=== PATIENT | male | born 1955 | race Caucasian/White ===

== ENCOUNTER 2017-09-25 10:23 | Inpatient (IN) | payer MEDICAID ==
[2017-09-25 10:56] LABS: PLATELET COUNT 260 10^3/uL (150-400)
[2017-09-25] MEDS ORDERED: ACETAMINOPHEN 325 MG TAB PO ONE (11:03)
[2017-09-25 11:06] LABS: INR 1.73 (0.83-1.16); PROTIME(PATIENT) 20.4 SEC (12.0-15.0)
--- NOTE | 2017-09-25 11:06 | EDPHY ---
H & P Time Seen by Provider: 09/25/17 10:53 HPI/ROS: CHIEF COMPLAINT: Found down Limitations: Poor historian HISTORY OF PRESENT ILLNESS: 62-year-old male with left yamini paresis after a CVA presents with altered mental status. He lives in his own home was found down next to his wheelchair this morning by a caregiver. He has had a runny nose and a cough, but is unable to provide any further history. On Coumadin. REVIEW OF SYSTEMS: Unable to determine Past Medical/Surgical History: CVA, left hemiparesis, wheelchair-bound Social History: Lives in own home Smoking Status: Never smoked Physical Exam: General Appearance: Alert, pleasant Eyes: Pupils equal and round, no conjunctival pallor or injection ENT, Mouth: erythema bilateral nares, mucous membranes moist Neck: Normal inspection, no tenderness, ROM without pain Respiratory: Lungs are clear to auscultation, no c/w tenderness Cardiovascular: Regular rate and rhythm Gastrointestinal: Abdomen is soft and nontender Neurological: Alert, oriented to self, left hemiparesis Skin: Warm and dry Extremities: Compression stockings in place, no tenderness Psychiatric: Flat affect Constitutional: Initial Vital Signs Temperature (C) 37.3 C 09/25/17 10:44 Heart Rate 88 09/25/17 10:44 Respiratory Rate 16 09/25/17 10:44 Blood Pressure 186/98 H 09/25/17 10:44 O2 Sat (%) 94 09/25/17 10:44 O2 Delivery Mode Room Air Allergies/Adverse Reactions: No Known Allergies Allergy (Verified 09/25/17 10:40) Home Medications: Medication Instructions Recorded Baclofen [Baclofen 10 mg (*)] 30 mg PO HS 09/25/17 Gabapentin [Neurontin 300 MG (*)] 300 mg PO HS 09/25/17 Lisinopril [Zestril 20 mg (*)] 20 mg PO DAILY 09/25/17 Warfarin Sodium [Coumadin 3MG (*)] 6 mg PO DAILY 09/25/17 Medical Decision Making - Diagnostics EKG Interpretation: EKG interpreted by me reveals ST, rate 107, abnormal R wave progression, c/w ant LA vs abn lead placement. Imaging Results: Head CT 09/25/17 10:53 Impression: 1. Two small intraparenchymal bleeds in the posterior right frontal lobe (in bed of remote right middle cerebral artery territory ischemic infarction). 2. Petechial hemorrhagic contusion in left frontal lobe. 3. No subdural hematoma, shift, or fracture. Findings discussed with Ben at the ER desk on 09/25/2017 at 1135 hours. He will convey the positive results to Dr. Dorota Franklin. Chest X-Ray 09/25/17 11:02 Impression: No acute findings in the chest. ED Course/Re-evaluation: This pt presents with AMS. He is wheelchair bound after a CVA and apparently lives on his own, with caregivers who come to his home. He clearly is altered, though family/friends are not present to assist with the clinical history and not available by phone initially. w/u of AMS initiated, including CT head, given found down next to wheelchair. No evidence of trauma on physical exam. ED RN attempting to find family/friends. Serial exams x3 unchanged. Continues to have altered mental status. Eval for infection unremarkable, including CXR/UA. Influenza swab pending. CT reveals punctate ICH in bilateral frontal areas. Dr. Rai consulted for ICH, will see pt. Pt seen by Dr. Escobar, no reversal of anticoagulation. Repeat CT head in 4 hours. Consulted the hospitalist service, Dr. Mullins to admit. Consulted Dr. Galindo, will see pt for trauma. AMS most likely secondary to ICH, no evidence of alternative etiology. Critical care time by me exclusive of unbundled procedures: 35 minutes. Organ at risk: brain. Time spend in serial assessments of patient, review of tests/ radiologic studies, consultations. Differential Diagnosis: Altered mental status including but not limited to hypoglycemia, infectious process, electrolyte abnormality, head injury and intoxicants. - Data Points Laboratory Results: Laboratory Results 09/25/17 10:23 09/25/17 10:23 Medications Given: Hydralazine HCl (Apresoline) 10 mg IVP Q2HRS PRN PRN Reason: SBP Greater Than Stop: 03/24/18 22:39 Last Admin: 09/26/17 01:49 Dose: 10 mg Sodium Chloride (Ns) 1,000 mls @ 100 mls/hr IV CONT JESSICA Stop: 03/24/18 18:44 Last Admin: 09/27/17 14:31 Dose: 1,000 mls Labetalol HCl (Trandate Injection) 10 mg IVP Q4H PRN PRN Reason: SBP Greater Than Stop: 03/24/18 22:44 Last Admin: 09/26/17 17:32 Dose: 10 mg Ondansetron HCl (Zofran) 4 mg IVP Q4HRS PRN PRN Reason: Nausea/Vomiting, Can't Take PO Stop: 03/24/18 12:45 Last Admin: 09/27/17 09:10 Dose: 4 mg Warfarin Sodium (Coumadin) 6 mg PO DAILY@1600 [facility] Stop: 03/25/18 15:29 Last Admin: 09/27/17 17:14 Dose: 6 mg Discontinued Medications Acetaminophen (Tylenol) 650 mg PO EDNOW ONE Stop: 09/25/17 11:04 Last Admin: 09/25/17 11:47 Dose: 650 mg Sodium Chloride (Ns) 500 mls @ 1,000 mls/hr IV EDNOW ONE PRN Reason: Protocol Stop: 09/25/17 11:54 Last Admin: 09/25/17 11:50 Dose: 500 mls Sodium Chloride (Ns) 1,000 mls @ 3,000 mls/hr IV ONCE ONE Stop: 09/25/17 13:05 Last Admin: 09/25/17 13:08 Dose: 1,000 mls Vancomycin HCl 1.25 gm/ Sodium (Chloride) 250 mls @ 166.667 mls/hr IV Q12H [facility] Stop: 10/26/17 11:29 Last Admin: 09/27/17 00:50 Dose: 250 mls Potassium Chloride 10 meq/ (Sodium Chloride) 100 mls @ 100 mls/hr IV Q1H [facility] Stop: 09/26/17 16:29 Last Admin: 09/26/17 17:15 Dose: Not Given Potassium Chloride 10 meq/ (Sodium Chloride) 100 mls @ 50 mls/hr IV Q2H [facility] Stop: 09/27/17 02:59 Last Admin: 09/27/17 01:50 Dose: 100 mls Potassium Chloride (Klor-Con) 20 meq PO ONCE ONE Stop: 09/26/17 17:01 Last Admin: 09/26/17 17:32 Dose: 20 meq Potassium Chloride (Klor-Con) 10 meq PO ONCE ONE Stop: 09/27/17 09:31 Last Admin: 09/27/17 14:15 Dose: Not Given Departure - Departure Disposition: [facility] Clinical Impression: ICH (intracerebral hemorrhage) Qualifiers: Intracerebral hemorrhage etiology: traumatic Encounter type: initial encounter Laterality: unspecified laterality Loss of consciousness presence/duration: without LOC Qualified Code(s): S06.360A - Traumatic hemorrhage of cerebrum, unspecified, without loss of consciousness, initial encounter Condition: Serious
[2017-09-25] MEDS ORDERED: NS 500 ML IV ONE (11:25)
[2017-09-25] MEDS ORDERED: ACETAMINOPHEN 650 MG/20.3 ML UDCUP ONE (11:42)
--- NOTE | 2017-09-25 12:45 | CPEKG ---
Heart Rate: 107 RR Interval: 561 P-R Interval: 164 QRSD Interval: 98 QT Interval: 348 QTC Interval: 465 P Argyle: 76 QRS Argyle: 65 T Wave Argyle: 36 EKG Severity - BORDERLINE ECG - EKG Impression: SINUS TACHYCARDIA EKG Impression: CONSIDER ANTERIOR INFARCT Electronically Signed By: Dorota Franklin 25-Sep-2017 14:58:02
[2017-09-25] MEDS ORDERED: ONDANSETRON DISINTEGRATING 4 MG TAB PO PRN (12:46)
[2017-09-25] MEDS ORDERED: ACETAMINOPHEN 325 MG TAB PO PRN (12:46)
[2017-09-25] MEDS ORDERED: NS 1,000 ML IV ONE (12:46)
--- NOTE | 2017-09-25 14:59 | GHP ---
[f rep st] HISTORY AND PHYSICAL DATE OF ADMISSION: 09/25/2017 CHIEF COMPLAINT: The patient was found down. HISTORY OF PRESENT ILLNESS: This is a 62-year-old male with a history of a CVA and left hemiparesis, wheelchair bound, is a resident of a local nursing facility, where he was found down this morning, b rought to the emergency department for evaluation. Upon my evaluation in the ICU, patient is denying any chest pain, denying palpitations, denying shortness of breath. Cannot recall the events which l ed to him being found down. Does report a dull headache that involves his entire head. Denies any v ision changes. Denies any new numbness or tingling, changes in his hemiparesis. Denies any subjecti ve fevers or chills. Reports a recent cough that has been nonproductive of sputum. Denies nausea. Denies vomiting. Denies diarrhea or dysuria. PAST MEDICAL HISTORY: 1. Patient has a history of CVA with persistent left hemiparesis, wheelchair bound. The patient has right carotid artery occlusion, on full-dose anticoagulation. 2. History of a traumatic brain injury. SOCIAL HISTORY: Negative for tobacco. Occasional alcohol. No illicit drugs or marijuana. FAMILY HISTORY: Positive for strokes. REVIEW OF SYSTEMS: A 10-point review of systems is negative, with the exception of that reported in the HPI. PHYSICAL EXAMINATION: VITAL SIGNS: Blood pressure is 161/90, heart rate 114, respiratory rate 18, s aturating 94% on room air, 37.2. GENERAL: This is a thin-appearing middle-aged male lying flat in b ed. HEENT: Exam is notable for dry mucous membranes. Eye exam is negative for any icterus. CARDIA C: Patient is tachycardic but regular. PULMONARY: Clear to auscultation bilaterally. GASTROINTEST INAL: Positive bowel sounds. ABDOMEN: Soft and nontender. MUSCULOSKELETAL: Negative for any lowe r extremity edema. SKIN: Exam is negative for any rashes. NEUROLOGIC: The patient is alert and or iented x1. Has 4/5 strength bilaterally of the upper and lower extremities. PSYCHIATRIC: He is ple asant and cooperative on interview and examination. DATA: CT of the head, which I personally reviewed and interpreted, shows 2 small intraparenchymal bl eeds in the posterior right frontal lobe. Radiology describes a petechial hemorrhagic contusion in t he left frontal lobe. No subdural hematoma or shift are noted. LABORATORY DATA: White count is 15.4, hematocrit 48.9, platelets of 260, INR 1.73, creatinine 0.8, c arbon dioxide 21, anion gap 20, blood glucose 114. Urinalysis negative. ASSESSMENT AND PLAN: This is a 62-year-old male with a history of a CVA, on full-dose anticoagulatio n, presenting found down. 1. Acute small intraparenchymal hemorrhages. Patient was evaluated by Neurosurgery, who did not rec ommend reversing his anticoagulation at this time. He will be admitted to the stepdown unit for clos e neurologic monitoring and serial CT scans of the head. 2. Acute leukocytosis. The patient does not have significant symptoms concerning for occult infecti on. Blood cultures were obtained from the emergency department. Urinalysis is negative, and respira tory pathogen panel is negative. Will continue to monitor clinically. Would not start empiric antib iotics at this time. 3. History of cerebrovascular accident. Will hold the patient's warfarin overnight. Will not rever se per Neurosurgery and follow clinically. PT/OT have been ordered. Continue to monitor closely. 4. Prophylaxis. Will hold Lovenox, place SCDs. Diet as he tolerates. DISPOSITION: I expect greater than 2 midnights. Patient presenting with intraparenchymal bleed, req uiring close neurologic monitoring and step-down unit admission. I have discussed the case with the emergency room physician. Patient will be triaged to the stepdown unit for neurologic care. /[id number]/MODL
--- NOTE | 2017-09-25 15:55 | PDMN ---
Medical Necessity Medical necessity: est los>2mn for acute intraparenchymal hemorrhages r/t fall and acute leukocytosis of unknown etiology; admit to ICU/SDU for close monitoring, and serial CT's of head, follow blood cx's and monitor clinically for infection; comorbid L hemiparesisi, and w/c bound @ LTC facility, r/t CVA, TBI, and R carotid artery occlusion, on full dose AC; per order and H&P 09/25/17
--- NOTE | 2017-09-25 20:26 | GCON ---
[f rep st] CONSULTATION ER CONSULTATION. DATE OF CONSULTATION: 09/25/2017 REASON FOR CONSULTATION: Intraparenchymal and subdural hematoma status post ground-level fall. HISTORY OF PRESENT ILLNESS: The patient is a 62-year-old gentleman with a history of prior CVA and baseline left-sided hemiparesis for which he is anticoagulated, who states that he was found down next to his wheelchair on the morning of the August,. The patient has some altered mental status upon his arrival to [facility] but other than that, has only had a runny nose and cough, but no further history is obtainable from the patient. He was brought by EMS to [facility] where imaging studies demonstrated small intraparenchymal hemorrhage with subdural hematoma component. Given his findings on head CT and the fact that he takes Coumadin, a neurosurgical consultation was requested. During my evaluation of the patient, he denies any headaches or double or blurred vision. No new tingling, numbness, pain, or weakness of the upper or lower extremities. He does have a baseline left-sided hemiparesis secondary to a prior right-sided CVA several years ago for which he is anticoagulated. Denies any neck pain. REVIEW OF SYSTEMS: Cannot be completed secondary to the patient's inability to participate. PAST MEDICAL HISTORY: 1. History of CVA for which he is anticoagulated. 2. Baseline left-sided hemiparesis. 3. History of being wheelchair bound secondary to #2 above. SOCIAL HISTORY: The patient lives on his own. Denies any tobacco use. No alcohol use. ALLERGIES: No known drug allergies. MEDICATIONS: 1. Baclofen. 2. Gabapentin. 3. Lisinopril. 4. Coumadin. PHYSICAL EXAMINATION: VITAL SIGNS: Blood pressure 178/85, heart rate 114, respiratory rate 18, saturating at 94% on room air, temperature is 37.3 orally. GENERAL: The patient is lying on the gurney. He has no acute distress. He is quite pleasant and cooperative with the examination. He has baseline hemiparesis with spasticity and contractures of left upper and left lower extremity. HEENT: His head is atraumatic, normocephalic. Pupils are equal, round, and reactive to light bilaterally. His extraocular movements are intact. His tongue protrudes midline. His uvula and palate elevate symmetrically. He has intact sensation to his face bilaterally. Hearing to light conversation is symmetric. Shoulder shrug is symmetric. MOTOR: 5/5 left physics technical officer strength biceps, triceps, deltoid, right hip flexion, knee flexion/ extension, plantar dorsiflexion, and extensor hallucis longus. Patient has twitch motion of the left hand with extension and contraction of the fingers and is able to wiggle his toes very lightly in the left lower extremity but no full intact motor noted. SENSORY: Intact sensation to light touch throughout all major dermatomes of the bilateral upper and lower extremities throughout. Cranial nerves 2-12 appear to be intact. OTHER: The remainder of the examination is deferred secondary to the patient being on the gurney and with his limitation to participate. MEDICAL DECISION MAKING: Patient underwent a head CT without contrast, which was reviewed by me on the [facility] PAC system. There was evidence of 2 small intraparenchymal bleeds in the right posterior frontal lobe in the bed of the remote right middle cerebral artery territory ischemic infarct with petechial hemorrhage contusion in the left frontal lobe but no evidence of any subdural hematomas, shifts, or fractures. LABS: White count 15.45, platelets 260, INR 1.73, PTT 20.4. Sodium 145, potassium 4.0, BUN of 13, creatinine 0.8. ASSESSMENT AND PLAN: The patient is a 62-year-old gentleman with a history of prior left-sided baseline hemiparesis for which he is wheelchair bound secondary to a cerebrovascular accident. He is anticoagulated with Coumadin, but his INR level is 1.73 in the emergency department today. He appears to be neurologically stable as there is no family or other witnesses to corroborate the information, but he is able to tell me that he lives in [place] and the appropriate year and his age. At this point, the patient will be admitted to the medical service. I do not recommend any anticoagulation for these findings and I do not recommend reversing his anticoagulation. I have recommended that he undergo a repeat head CT without contrast 4 hours from his prior scan just to ensure stability of the lesions. He is admitted to the step-down unit with q.2 hour neuro checks. There is a very small likelihood that he would require any type of intervention for these bleeds, but would recommend continuing to hold his Coumadin until the head CT demonstrates that the lesions are in fact stable. I discussed this with Dr. Franklin of the emergency room and the patient. Thank you for this consultation. Please note, this patient was seen in the emergency department at approximately 12:10 p.m. /[id number]/MODL MTDD
--- NOTE | 2017-09-25 23:01 | GCON ---
[f rep st] CONSULTATION HISTORY OF PRESENT ILLNESS: Patient is a 62-year-old male who was found down, having fallen out of h is wheelchair. He does not remember any loss of consciousness or reason for his fall. He has had a CVA in the past and has a left hemiparesis. Presently, does not have a headache, blurry vision, or a ny other mental symptoms. REVIEW OF SYSTEMS: Negative on a full 10-point review, although I am not entirely sure he understood all the questions. Specifically, he does not smoke and denies any cardiac symptoms. MEDICATIONS: Baclofen, coumadin, lisinopril, and Neurontin. ALLERGIES: None. PHYSICAL EXAMINATION: GENERAL: An alert, cooperative 62-year-old male, in no acute distress. HEAD/ NECK: Reveal his pupils to be equal, round, and reactive, no adenopathy, no oral lesions, normal occ lusion. Neck is supple nontender. Scalp reveals no evidence of trauma with no abrasions or contusio ns. CHEST: Clear and symmetric. CARDIAC: Regular rhythm without murmurs. ABDOMEN: Soft and nont sanchez. EXTREMITIES: Reveal full pulses. NEUROLOGIC: Reveals him to be alert, oriented, and norma ative. He does have a left hemiparesis involving the arm and leg. Cranial nerves are intact. SKIN: Reveals no lacerations or other findings. BACK: Nontender. IMPRESSION: Small intraparenchymal hemorrhage seen on head CT scan. Chest x-ray revealed no abnormalities. EKG revealed possible anterior infarct. PLAN: Admit to the medicine service for workup for the syncope. Neurosurgery consultation and kat ramachandran head CT scan. /[id number]/MODL
[2017-09-25] MEDS: hydrALAZINE 20 MG/ML VIAL IVP PRN (23:03)
[2017-09-25] MEDS: LABETALOL HCL 5 MG/ML 20 ML MDV IVP PRN (23:49)
[2017-09-26] MEDS: ONDANSETRON 4 MG/2 ML VIAL IVP PRN ×2 (01:44→22:28)
[2017-09-26] MEDS: hydrALAZINE 20 MG/ML VIAL IVP PRN (01:49)
[2017-09-26] MEDS: NS 1,000 ML IV SCH ×2 (01:51→11:40)
[2017-09-26 05:27] LABS: PLATELET COUNT 202 10^3/uL (150-400)
--- NOTE | 2017-09-26 08:24 | NEUSURGPN ---
Assessment/Plan: Assessment: 62 yo male that is admitted to with prior CVA and left sided weakness/spasms that is normally in a wheelchair that was found down with right frontal and left frontal ICH Plan: -neuro stable -repeat CT (#2) shows some small increases in IPHs -repeat CT (#3) this am shows stable findings but will await the final reading from radiology -if CT stable Dr Escobar is ok to resume coumadin -PT/OT/ST ordered -pt will need a PRN follow up -pt seen by Dr Escobar as well -call with any questions or concerns -pt understands and agrees -warning signs given Subjective: Awake and alert. NAD. Pt with mild GARCIA. No neck/chest/abd or gu complaints. No f/c/n/v/d. Objective: AAO, PERRLA/EOMI no droop CN 2-12 grossly intact MARY x 4 Neuro Check Frequency: per routine Urinary Catheter in Place: No - Physician Discussed Patient with Dr.: Escobar Patient Seen by Dr.: Escobar Neurosurgery Physical Exam - Vitals, I&O, Labs I and O 09/25/17 09/26/17 09/27/17 05:59 05:59 05:59 Intake Total 2918 Output Total 375 Balance 2543 Weight 75.75 kg Intake: IV Infused (ml) 2918 Ns 1,000 ml @ 100 mls/hr 1418 IV CONT JESSICA Rx#: [id number] Ns 1,000 ml @ 3000 mls/hr 1500 IV ONCE ONE Rx#: [id number] Output: Urine (ml) 375 Urinal 375 Other: Number of Voids Incontinence 3 Urinal 5 Microbiology 09/25/17 12:52 Respiratory Panel (PCR) - Final Nasal, Sinus - Swab No Organism Detected Vital Signs Temp Pulse Resp BP Pulse Ox 37.3 C 70 14 148/74 H 96 09/26/17 08:00 09/26/17 08:00 09/26/17 08:00 09/26/17 08:00 09/26/17 08:00 Laboratory Results 09/26/17 05:05 09/26/17 05:05 ICD10 Worksheet Patient Problems: Problems Problem Status Onset ICH (intracerebral hemorrhage) Acute CVA (cerebral vascular accident) Acute Decubitus ulcer of left hip Acute
[2017-09-26] MEDS ORDERED: VANCOMYCIN PHARMACY TO DOSE MISC SCH (11:15)
[2017-09-26] MEDS: VANCOMYCIN 1.25 GM in NS 250 ML IV SCH (11:39)
--- NOTE | 2017-09-26 12:40 | ASMTCMCOM ---
CM Note CM Note Notes: 62yr old male found down admitted for ICH. He has a Hx of CVA, TBI, Ulcer on L hip, Occlusion of R carotid artery. Talking with patient's brother, Fuad, , patient was living at home alone but had caregivers 4-5hrs/day 5 days a week. Brother said that patient had been able to transfer and walk 12 steps. Spoke to patient's MPOA, Sammie Bartlett [phone] who is presently in [place]. She reports that patient has had 2 TBI in the past which has affected him greatly. After his CVA patient went to [facility]pt [facility]. Asked therapists if they could consider Acute Rehab on discharge. Date Signed: 09/26/2017 12:40 PM Electronically Signed By:Shelia Holland LCSW
[2017-09-26] MEDS ORDERED: PROTOCOL POTASSIUM 1 DOSE MISC PRN (12:46)
[2017-09-26] MEDS ORDERED: POTASSIUM Cl (KCl) 100 ML IV SCH (13:00)
[2017-09-26] MEDS: POTASSIUM Cl (KCl) 10 MEQ in NS 100 ML IV SCH ×3 (14:56→23:46)
--- NOTE | 2017-09-26 15:09 | ASMTCMCOM ---
CM Note CM Note Notes: [facility]aker [phone] who found him down at home and contacted 911. Date Signed: 09/26/2017 03:08 PM Electronically Signed By:Shelia Holland LCSW
--- NOTE | 2017-09-26 15:27 | HOSPPROG ---
Hospitalist Progress Note Assessment/Plan: # Small intercerebral hemorrhages- Repeat CT (personally reviewed and interpreted) remains stable Patient on full-dose anticoagulation secondary to stroke- oxygen saturations 98% on RA - restart Coumadin this pm. - neurologic exam appears stable - with Neurosurgery following # history of CVA- persistent up left-sided hemiparesis wheelchair bound with baseline tremor - continue warfarin at normal dosing - continue close monitoring - PT/OT # Gram-positive cocci in cluster bacteremia- 1 of 2 blood cultures overnight - start vancomycin - follow cultures closely could be potential contaminant # prophylaxis-contraindicated with acute intracranial bleed # diet- speech evaluation # dispo- > 2MN as requires ongoing monitoring neurologically I have discussed the case with Neurosurgery-patient's exam is stable overnight with stable neurologic monitoring will restart home dosing of Coumadin tonight Subjective: denies pain Objective: Vital Signs Temp Pulse Resp BP Pulse Ox 37.2 C 110 H 13 175/93 H 98 09/26/17 11:52 09/26/17 12:00 09/26/17 11:52 09/26/17 12:00 09/26/17 11:52 Microbiology 09/25/17 13:15 Blood Panel (PCR) - Final Blood Staph Coagulase Negative 09/25/17 12:52 Respiratory Panel (PCR) - Final Nasal, Sinus - Swab No Organism Detected Laboratory Results 09/26/17 05:05 09/26/17 05:05 09/25/17 09/26/17 09/27/17 05:59 05:59 05:59 Intake Total 2918 Output Total 375 175 Balance 2543 -175 PT 20.4 SEC (12.0-15.0) H 09/25/17 10:23 INR 1.73 (0.83-1.16) H 09/25/17 10:23 - Physical Exam Constitutional: chronically ill appearing Eyes: anicteric sclera Ears, Nose, Mouth, Throat: dry mucous membranes Cardiovascular: regular rate and rhythym Respiratory: no respiratory distress Gastrointestinal: normoactive bowel sounds Genitourinary: no bladder fullness Skin: warm Musculoskeletal: No asymmetric calves Neurologic: No AAOx3 Psychiatric: interacting appropriately Lymph, Heme, Immunologic: no cervical LAD ICD10 Worksheet Patient Problems: Problems Problem Status Onset ICH (intracerebral hemorrhage) Acute CVA (cerebral vascular accident) Acute Decubitus ulcer of left hip Acute
[2017-09-26] MEDS ORDERED: POTASSIUM CL 20 MEQ TAB PO ONE (17:00)
[2017-09-26] MEDS: WARFARIN SODIUM 3 MG TAB PO SCH (17:32)
[2017-09-26] MEDS: LABETALOL HCL 5 MG/ML 20 ML MDV IVP PRN (17:32)
--- NOTE | 2017-09-26 19:37 | TRAUMAPN ---
Assessment/Plan: 62 yo with history of CVA and fall with [facility] Tertiary survey performed and no additional injuries noted Discussed with David Neves and Dr. Mullins Trauma will sign off, please do not hesitate to contact with additional questions or concerns Neuro checks per neurosurgery Anticoagulation per neurosurgery S: No complaints Objective: Vital Signs Temp Pulse Resp BP Pulse Ox 37.2 C 89 12 163/86 H 97 09/26/17 11:52 09/26/17 18:00 09/26/17 18:00 09/26/17 18:00 09/26/17 18:00 Microbiology 09/25/17 13:15 Blood Panel (PCR) - Final Blood Staph Coagulase Negative 09/25/17 12:52 Respiratory Panel (PCR) - Final Nasal, Sinus - Swab No Organism Detected Laboratory Results 09/26/17 05:05 09/26/17 18:11 09/25/17 09/26/17 09/27/17 05:59 05:59 05:59 Intake Total 2918 1537 Output Total 375 350 Balance 2543 1187 PT 20.4 SEC (12.0-15.0) H 09/25/17 10:23 INR 1.73 (0.83-1.16) H 09/25/17 10:23 Physical Exam - Physical Exam General Appearance: WD/WN, no apparent distress EENT: normal ENT inspection, No scleral icterus (R), No scleral icterus (L) Neck: non-tender, full range of motion Respiratory: chest non-tender, lungs clear, normal breath sounds Cardiac/Chest: regular rate, rhythm Abdomen: normal bowel sounds, non-tender, soft Skin: normal color, warm/dry Extremities: other (left hemiparesis)
[2017-09-27] MEDS: VANCOMYCIN 1.25 GM in NS 250 ML IV SCH (00:50)
[2017-09-27] MEDS: POTASSIUM Cl (KCl) 10 MEQ in NS 100 ML IV SCH (01:50)
--- NOTE | 2017-09-27 07:27 | NEUSURGPN ---
Assessment/Plan: Assessment: 62 yo male that is admitted to IM with prior CVA and left sided weakness/spasms that is normally in a wheelchair that was found down with right frontal and left frontal ICH Plan: -neuro stable-more alert today -repeat CT (#2) shows some small increases in IPHs -repeat CT (#3) this am shows stable findings but will await the final reading from radiology -per Dr Escobar he is ok to resume coumadin-will defer to IM for management of this -PT/OT/ST -pt will need a PRN follow up with us -recheck with PCP -call with any questions or concerns -pt understands and agrees -warning signs given -d/w Dr Escobar and ok to sign off Subjective: Awake and alert. NAD. Eating/drinking and voiding. No new events overnight. Objective: AAO, PERRLA/EOMI no droop CN 2-12 grossly intact MARY x 4 Neuro Check Frequency: per routine Urinary Catheter in Place: No - Physician Discussed Patient with : Shawn Neurosurgery Physical Exam - Vitals, I&O, Labs I and O 09/26/17 09/27/17 09/28/17 05:59 05:59 05:59 Intake Total 2918 1737 Output Total 375 1000 Balance 2543 737 Weight 75.75 kg Intake: Oral (ml) 440 IV Infused (ml) 2918 1297 Ns 1,000 ml @ 100 mls/hr 1418 1297 IV CONT JESSICA Rx#: [id number] Ns 1,000 ml @ 3000 mls/hr 1500 IV ONCE ONE Rx#: [id number] Output: Urine (ml) 375 1000 Catheter 175 Urinal 375 825 Other: Intake Quantity Yes Sufficient Number of Voids Incontinence 3 1 Urinal 5 2 Microbiology 09/25/17 13:15 Blood Panel (PCR) - Final Blood Staph Coagulase Negative Vital Signs Temp Pulse Resp BP Pulse Ox 37.2 C 90 15 130/60 H 97 09/27/17 05:52 09/27/17 05:52 09/27/17 05:52 09/27/17 05:52 09/27/17 05:52 Laboratory Results 09/27/17 06:00 09/27/17 06:00 ICD10 Worksheet Patient Problems: Problems Problem Status Onset ICH (intracerebral hemorrhage) Acute CVA (cerebral vascular accident) Acute Decubitus ulcer of left hip Acute
[2017-09-27] MEDS ORDERED: POTASSIUM Cl (KCl) 100 ML IV SCH (07:45)
[2017-09-27] MEDS: ONDANSETRON 4 MG/2 ML VIAL IVP PRN (09:10)
[2017-09-27] MEDS ORDERED: POTASSIUM CL 10 MEQ TAB PO ONE (09:30)
--- NOTE | 2017-09-27 12:00 | ASMTCMCOM ---
CM Note CM Note Notes: I spoke with Trae at [facility] about patient's prior level of functioning. According to Trae, patient receives 3 hours of care M-F (through Medicaid's HCBS program). They usually help him with morning chores, although patient can transfer from his bed to his w/c independently. He does require some assistance with showering. According to Trae, he is independent the rest of the day. She also said that he is AO x 4, conversant although quiet. She wonders if he's mildly depressed. Overall, it sounded like patient was pleasant and easy to care for. His [facility] fixed income manager (who manages his homecare) is Jennifer Hopper [phone]. We have ordered an inpatient rehab consult. They will follow. Date Signed: 09/27/2017 12:00 PM Electronically Signed By:Karin Puentes RN
--- NOTE | 2017-09-27 14:04 | HOSPPROG ---
Hospitalist Progress Note Assessment/Plan: # Small intercerebral hemorrhages- Repeat CT (personally reviewed and interpreted) remains stable- more alert today Patient on full-dose anticoagulation secondary to stroke- oxygen saturations 98% on RA - cont Coumadin -inr in am - neurologic exam appears stable - with Neurosurgery following # history of CVA- persistent up left-sided hemiparesis wheelchair bound with baseline tremor - continue warfarin at normal dosing - continue close monitoring - PT/OT - needs rehab # Gram-positive cocci in cluster bacteremia- 1 of 2 blood cultures - staph epi - dc vancomycin - is contaminant # prophylaxis-contraindicated with acute intracranial bleed # diet- speech evaluation # dispo- > 2MN as requires ongoing monitoring neurologically I have discussed the case with Neurosurgery-patient's exam is stable overnight with stable neurologic monitoring will restart home dosing of Coumadin tonight Subjective: denies pain Objective: Vital Signs Temp Pulse Resp BP Pulse Ox 37.2 C 90 15 130/60 H 97 09/27/17 05:52 09/27/17 05:52 09/27/17 05:52 09/27/17 05:52 09/27/17 05:52 Microbiology 09/25/17 13:15 Blood Panel (PCR) - Final Blood Staph Coagulase Negative Laboratory Results 09/27/17 06:00 09/27/17 06:00 09/26/17 09/27/17 09/28/17 05:59 05:59 05:59 Intake Total 2918 1737 Output Total 375 1000 125 Balance 2543 737 -125 PT 20.4 SEC (12.0-15.0) H 09/25/17 10:23 INR 1.73 (0.83-1.16) H 09/25/17 10:23 - Physical Exam Constitutional: no apparent distress, chronically ill appearing Eyes: anicteric sclera Ears, Nose, Mouth, Throat: moist mucous membranes Cardiovascular: regular rate and rhythym Respiratory: no respiratory distress Gastrointestinal: normoactive bowel sounds Genitourinary: no bladder fullness Skin: warm Musculoskeletal: No asymmetric calves Neurologic: No AAOx3 Psychiatric: interacting appropriately Lymph, Heme, Immunologic: no cervical LAD ICD10 Worksheet Patient Problems: Problems Problem Status Onset ICH (intracerebral hemorrhage) Acute CVA (cerebral vascular accident) Acute Decubitus ulcer of left hip Acute
[2017-09-27] MEDS: NS 1,000 ML IV SCH (14:31)
[2017-09-27] MEDS: WARFARIN SODIUM 3 MG TAB PO SCH (17:14)
[2017-09-28] MEDS ORDERED: POTASSIUM Cl (KCl) 100 ML IV SCH (12:00)
[2017-09-28 12:09] LABS: INR 2.38 (0.83-1.16)
[2017-09-28] MEDS ORDERED: PROTOCOL POTASSIUM 1 DOSE MISC PRN (12:17)
[2017-09-28] MEDS ORDERED: POTASSIUM CL 10 MEQ TAB PO ONE ×2 (12:30→19:50)
--- NOTE | 2017-09-28 15:47 | HOSPPROG ---
Hospitalist Progress Note Assessment/Plan: # Small intercerebral hemorrhages- Repeat CT (personally reviewed and interpreted) remains stable- more alert daily Patient on full-dose anticoagulation secondary to stroke- oxygen saturations 98% on RA -INR 2.38 - cont Coumadin - neurologic exam appears stable - Neurosurgery signed off # history of CVA- persistent up left-sided hemiparesis wheelchair bound with baseline tremor - continue warfarin at normal dosing - continue close monitoring - PT/OT - needs rehab # Gram-positive cocci in cluster bacteremia- 1 of 2 blood cultures - staph epi - dc vancomycin - is contaminant # prophylaxis-contraindicated with acute intracranial bleed # diet- speech evaluation # dispo- > 2MN as requires ongoing monitoring neurologically I have discussed the case with RN-patient is stable for med surge transfer - looking for rehab disposition Subjective: Tired Objective: Vital Signs Temp Pulse Resp BP Pulse Ox 37.2 C 74 18 141/73 H 98 09/28/17 08:00 09/28/17 08:00 09/28/17 08:00 09/28/17 08:00 09/28/17 08:00 Microbiology 09/25/17 13:15 Blood Panel (PCR) - Final Blood Staph Coagulase Negative Laboratory Results 09/27/17 06:00 09/28/17 10:30 09/27/17 09/28/17 09/29/17 05:59 05:59 05:59 Intake Total 1737 1861 Output Total 1000 1050 Balance 737 811 PT 26.0 SEC (12.0-15.0) H 09/28/17 11:50 INR 2.38 (0.83-1.16) H 09/28/17 11:50 - Physical Exam Constitutional: chronically ill appearing Eyes: anicteric sclera Ears, Nose, Mouth, Throat: dry mucous membranes Cardiovascular: regular rate and rhythym Respiratory: no respiratory distress Gastrointestinal: normoactive bowel sounds Genitourinary: no bladder fullness Skin: warm Musculoskeletal: No asymmetric calves Neurologic: No AAOx3 Psychiatric: interacting appropriately Lymph, Heme, Immunologic: no cervical LAD ICD10 Worksheet Patient Problems: Problems Problem Status Onset ICH (intracerebral hemorrhage) Acute CVA (cerebral vascular accident) Acute Decubitus ulcer of left hip Acute
[2017-09-28] MEDS ORDERED: LISINOPRIL 20 MG TAB PO SCH (16:08)
--- NOTE | 2017-09-28 16:44 | ASMTCMCOM ---
CM Note CM Note Notes: Spoke with patient's friend, Riddhi Fisher( [phone]) who is concerned for patient. She will be leaving on a trip September and won't return until the end of the month. Riddhi states patient may need assistance with his MDPOA. It was done in 2016 but patient has since had a falling out with Sammie the person on his form.Although Sammie is in [place] currently, there was a restraining order mentioned. However, it is unclear if this is fact or rumor. CM will need to meet with patient and ask him if he would like to update his MOST form and possibly list his brother instead. Riddhi states patient is a kind and wonderful person but tends to be quiet natured. She does have some concerns about depression he might be experiencing related to all the health difficulties he has had recently. Spoke with Mary Valentino who states patient is accepted for inpatient rehab. If patient is not ready to go until Monday she will need to reassess. Mary also said they cannot do a weekend d/c. However, she can take him Monday or reassess on Monday. Mary pointed out patient might also qualify for Medicare and if he is not signed up, maybe the hospital can help get application started. Will alert Karlene. CM will follow. Date Signed: 09/28/2017 04:43 PM Electronically Signed By:Myesha Reis LCSW
[2017-09-28] MEDS: WARFARIN SODIUM 3 MG TAB PO SCH (16:57)
[2017-09-28] MEDS: LISINOPRIL 20 MG TAB PO SCH (16:57)
[2017-09-28] MEDS ORDERED: GABAPENTIN 300 MG CAP PO SCH (21:00)
[2017-09-28] MEDS ORDERED: BACLOFEN 20 MG TAB PO SCH (21:00)
[2017-09-29 05:23] LABS: INR 2.98 (0.83-1.16); PROTIME(PATIENT) 30.8 SEC (12.0-15.0)
[2017-09-29 08:12] VITALS: BP 151/77; PULSE 79; RESP 16; TEMP 98.2; O2SAT 94
[2017-09-29] MEDS ORDERED: POTASSIUM CL 10 MEQ TAB PO ONE (08:14)
[2017-09-29] MEDS ORDERED: LISINOPRIL 20 MG TAB PO SCH (09:00)
[2017-09-29] MEDS: LISINOPRIL 20 MG TAB PO SCH (10:09)
--- NOTE | 2017-09-29 11:12 | PDIAF ---
- Diagnosis Diagnosis: intracerebral hemorrhage Code Status: Full Code - Medication Management Discharge Medications: Medications to Continue on Transfer Baclofen [Baclofen 10 mg (*)] 30 mg PO HS 09/25/17 [Last Taken 09/24/17] Gabapentin [Neurontin 300 MG (*)] 300 mg PO HS 09/25/17 [Last Taken 09/24/17] Lisinopril [Zestril 20 mg (*)] 20 mg PO DAILY 09/25/17 [Last Taken 09/25/17] Warfarin Sodium [Coumadin 3MG (*)] 6 mg PO DAILY 09/25/17 [Last Taken 09/25/17] Acetaminophen [Tylenol 325mg (*)] 650 mg PO Q4HRS PRN tab 09/29/17 [Last Taken Unknown] Discharge Medications: Refer to the Discharge Home Medication list for PRN reason. - Orders Services needed: Registered Nurse, Physical Therapy, Occupational Therapy, Speech Language Pathologist Isolation Type: None Diet Recommendation: no restrictions on diet Diet Texture: Regular Texture Diet, Thin Liquids, Meds Whole w/Liquids - Labs/Radiology PT/INR Date: 10/02/17 - Follow Up Care Current Providers and Referrals: Patient,NotPresent [Unknown] - As per Instructions Salvador Escobar MD [Medical Doctor] - (follow up with Dr Escobar or PCP in 2 weeks for a recheck)
--- NOTE | 2017-09-29 11:45 | PDIAF ---
- Diagnosis Diagnosis: intracerebral hemorrhage Code Status: Full Code - Medication Management Discharge Medications: Medications to Continue on Transfer Baclofen [Baclofen 10 mg (*)] 30 mg PO HS 09/25/17 [Last Taken 09/24/17] Gabapentin [Neurontin 300 MG (*)] 300 mg PO HS 09/25/17 [Last Taken 09/24/17] Lisinopril [Zestril 20 mg (*)] 20 mg PO DAILY 09/25/17 [Last Taken 09/25/17] Warfarin Sodium [Coumadin 3MG (*)] 6 mg PO DAILY 09/25/17 [Last Taken 09/25/17] Acetaminophen [Tylenol 325mg (*)] 650 mg PO Q4HRS PRN tab 09/29/17 [Last Taken Unknown] Discharge Medications: Refer to the Discharge Home Medication list for PRN reason. - Orders Services needed: Registered Nurse, Physical Therapy, Occupational Therapy, Speech Language Pathologist Isolation Type: None Diet Recommendation: no restrictions on diet Diet Texture: Regular Texture Diet, Thin Liquids, Meds Whole w/Liquids - Labs/Radiology PT/INR Date: 09/30/17 (INR 3.98 3) - Follow Up Care Current Providers and Referrals: Patient,NotPresent [Unknown] - As per Instructions Salvador Escobar MD [Medical Doctor] - (follow up with Dr Escobar or PCP in 2 weeks for a recheck)
--- NOTE | 2017-09-29 12:06 | PDIAF ---
- Diagnosis Diagnosis: intracerebral hemorrhage Code Status: Full Code - Medication Management Discharge Medications: Medications to Continue on Transfer Baclofen [Baclofen 10 mg (*)] 30 mg PO HS 09/25/17 [Last Taken 09/24/17] Gabapentin [Neurontin 300 MG (*)] 300 mg PO HS 09/25/17 [Last Taken 09/24/17] Lisinopril [Zestril 20 mg (*)] 20 mg PO DAILY 09/25/17 [Last Taken 09/25/17] Acetaminophen [Tylenol 325mg (*)] 650 mg PO Q4HRS PRN tab 09/29/17 [Last Taken Unknown] Warfarin Sodium 4 mg PO DAILY #30 tablet 09/29/17 [Last Taken Unknown] Discharge Medications: Refer to the Discharge Home Medication list for PRN reason. - Orders Services needed: Registered Nurse, Physical Therapy, Occupational Therapy, Speech Language Pathologist Isolation Type: None Diet Recommendation: no restrictions on diet Diet Texture: Regular Texture Diet, Thin Liquids, Meds Whole w/Liquids - Labs/Radiology PT/INR Date: 09/30/17 (INR 3.98 09/29- reduced warfarin from 6mg to 4mg daily at dispo) - Follow Up Care Current Providers and Referrals: Patient,NotPresent [Unknown] - As per Instructions Salvador Escobar MD [Medical Doctor] - (follow up with Dr Escobar or PCP in 2 weeks for a recheck)
--- NOTE | 2017-09-29 16:25 | ASMTCMCOM ---
CM Note CM Note Notes: Pt medically stable for d/c to [facility] inpatient rehab. Medicaid stretcher transport scheduled w [facility] for 13:00. [place] Medicaid auth is [id number]. This SW CM spent time this morning going over pt MDPOA, pt does not want to change his MDPOA, adamant he will keep Sammie Bartlett primary and brother Fuad Lainez as alternate agent. [facility] was unable to take pt wc as it did not fold so they will send a van to pickup. Date Signed: 09/29/2017 04:25 PM Electronically Signed By:MATEO Goldstein
--- NOTE | 2017-09-29 16:26 | ASDISCHSUM ---
Discharge Information Plan Status:Inpatient Rehab Medically Cleared to Leave: Discharge Date:09/29/2017 12:35 PM CM D/C Disposition:[facility] Acute ADT D/C Disposition:[facility] IP Projected Discharge Date:09/29/2017 11:00 AM Transportation at D/C:ALS/BLS Discharge Delay Reason: Follow-Up Date:09/29/2017 11:00 AM Discharge Slot: Final Diagnosis:Found down-ICH Placement Information Referral Type:Rehabilitation Hospital Referral ID:[id number] Provider Name:[facility] Inpatient Rehab Address 1:[address] Phone Number: Address 2: Fax Number: City:[place] Selection Factors: State:[place] Patient Contact Information Contact Name:RASHAWN Relationship:Mother Address: Work Phone: City:[place] Phone: State/[facility] Code:[place] [address] Email: Financial Information Financial Class:Medicaid Primary Plan Desc[place] Primary Plan Number:[id number] Secondary Plan Desc: Secondary Plan Number: Assessment Information [facility] CM Progress Note CM Note CM Note Notes: 62yr old male found down admitted for ICH. He has a Hx of CVA, TBI, Ulcer on L hip, Occlusion of R carotid artery. Talking with patient's brother, Fuad, , patient was living at home alone but had caregivers 4-5hrs/day 5 days a week. Brother said that patient had been able to transfer and walk 12 steps. Spoke to patient's MPOA, Sammie Figueroadarius [phone] who is presently in [place]. She reports that patient has had 2 TBI in the past which has affected him greatly. After his CVA patient went to [facility] In-pt Rehab. Asked therapists if they could consider Acute Rehab on discharge. Date Signed: 09/26/2017 12:40 PM Electronically Signed By:Shelia Holland LCSW [facility] CM Progress Note CM Note CM Note Notes: [facility] had [facility] duty [phone] who found him down at home and contacted 911. Date Signed: 09/26/2017 03:08 PM Electronically Signed By:Shelia Holland LCSW [facility] CM Progress Note CM Note CM Note Notes: I spoke with Trae at [facility] about patient's prior level of functioning. According to Trae, patient receives 3 hours of care M-F (through Medicaid's HCBS program). They usually help him with morning chores, although patient can transfer from his bed to his w/c independently. He does require some assistance with showering. According to Trae, he is independent the rest of the day. She also said that he is AO x 4, conversant although quiet. She wonders if he's mildly depressed. Overall, it sounded like patient was pleasant and easy to care for. His [facility] talent analyst (who manages his homecare) is Jennifer Hopper [phone]. We have ordered an inpatient rehab consult. They will follow. Date Signed: 09/27/2017 12:00 PM Electronically Signed By:Karin Puentes RN [facility] CM Progress Note CM Note CM Note Notes: Spoke with patient's friend, Riddhi Fisher( [phone]) who is concerned for patient. She will be leaving on a trip September and won't return until the end of the month. Riddhi states patient may need assistance with his MDPOA. It was done in 2016 but patient has since had a falling out with Sammie the person on his form.Although Sammie is in [place] currently, there was a restraining order mentioned. However, it is unclear if this is fact or rumor. CM will need to meet with patient and ask him if he would like to update his MOST form and possibly list his brother instead. Riddhi states patient is a kind and wonderful person but tends to be quiet natured. She does have some concerns about depression he might be experiencing related to all the health difficulties he has had recently. Spoke with Mary Valentino who states patient is accepted for inpatient rehab. If patient is not ready to go until Monday she will need to reassess. Mary also said they cannot do a weekend d/c. However, she can take him Monday or reassess on Monday. Mary pointed out patient might also qualify for Medicare and if he is not signed up, maybe the hospital can help get application started. Will alert Karlene. CM will follow. Date Signed: 09/28/2017 04:43 PM Electronically Signed By:Myesha Reis LCSW [facility] CM Progress Note CM Note CM Note Notes: Pt medically stable for d/c to [facility] inpatient rehab. Medicaid stretcher transport scheduled w [facility] for 13:00. [place] Medicaid auth is [id number]. This SW CM spent time this morning going over pt MDPOA, pt does not want to change his MDPOA, adamant he will keep Sammie Bartlett primary and brother Fuad Lainez as alternate agent. [facility] was unable to take pt wc as it did not fold so they will send a van to [facility]. Date Signed: 09/29/2017 04:25 PM Electronically Signed By:MATEO Goldstein Intervention Information
--- NOTE | 2017-09-29 16:44 | GDS ---
[f rep st] DISCHARGE SUMMARY DISCHARGE DIAGNOSES: 1. Acute intracerebral hemorrhages. 2. History of cerebrovascular accident with persistent left-sided hemiparesis. HISTORY OF PRESENT ILLNESS: A 62-year-old male admitted 09/25/2017 after being found down. For deta ils of patient's initial presentation, please see the history and physical dated 09/25/2018. CONSULTATIVE SERVICES: 1. Trauma surgery. 2. Neurosurgery. PROCEDURES: On 09/26/2017, patient had repeat CT imaging that showed stable small intracerebral hemo rrhages. HOSPITAL COURSE BY ISSUE: 1. Patient was found down. During his initial trauma workup, noncontrast CT of the head was obtaine d and showed multiple small intracerebral hemorrhages that were new. Patient was admitted, seen by [facility] Trauma Surgery and Neurosurgery, and monitored off anticoagulation for progression of the small b bob. The patient's neurologic status improved with supportive treatment, and the radiographic appe arance of the bleeds remained stable. The patient, per Neurosurgical recommendations, was re-initiat ed on his outpatient Coumadin therapy and then monitored. On 09/29/2017, patient has returned to the [place] INR without any detriment in his neurologic exam. He will be transferred to inpatient rehab ilitation for ongoing strengthening and care. 2. History of cerebrovascular accident with dense left hemiparesis: Patient is on full-dose anticoa gulation for this stroke. He is wheelchair bound. The patient regained baseline neurologic function and is being transferred to inpatient rehabilitation at [facility] for ongoing strengthening. 3. Hypertension: The patient is continued on his home dosing of oral lisinopril. MEDICATIONS AT THE TIME OF DISPOSITION: Please reference the med rec printed on 09/29/2017. Of note , the patient's home dose of Coumadin has been reduced to 4 on the day of disposition as his INR is 3 .98. Suspect he will likely need a dose that will settle out somewhere in between his home dosing of 6 and the transfer dose of 4. We recommend INR daily over the course of the next 72 hours. FOLLOWUP APPOINTMENTS: Include with Dr. Escobar from Neurosurgery in the next 2 weeks for his first p ost-disposition followup. I spent greater than 30 minutes in the planning and coordination of this d ischarge. /[id number]/MODL
== END 2017-09-29 12:35 | DRG 86 ==
LOC: EDUNIT# → F2N 13:41 → F3N 09-28 15:28
PROVIDERS: ADMIT Hospitalist; ATTEND Hospitalist
DX: S06.2X0A Diffuse traumatic brain injury without loss of consciousness, initial encounter (principal); I69.354 Hemiplegia and hemiparesis following cerebral infarction affecting left non-dominant side; I10 Essential (primary) hypertension; Z79.01 Long term (current) use of anticoagulants; W05.0XXA Fall from non-moving wheelchair, initial encounter; Y92.019 Unspecified place in single-family (private) house as the place of occurrence of the external cause; Z99.3 Dependence on wheelchair
CPT/HCPCS: 92507-GN; 92610-GN; 97163-GP; 97167-GO; 97530-GO; 97530-GP; J0360; J2405; J3370; J3480

== ENCOUNTER 2017-09-29 12:58 | Inpatient (IN) | payer MEDICAID ==
[2017-09-29] MEDS ORDERED: ACETAMINOPHEN 325 MG TAB PO PRN (15:11)
[2017-09-29] MEDS ORDERED: SENNOSIDES 17.6 MG/10 ML UDL PO PRN (15:11)
[2017-09-29] MEDS ORDERED: BISACODYL 10 MG SUPP PR PRN (15:11)
[2017-09-29] MEDS ORDERED: POLYETHYLENE GLYCOL 3350 17 GM PKT PO PRN (15:11)
[2017-09-29] MEDS ORDERED: MAG HYDROX/AL HYDROX/SIMETH 30 ML UDCUP PO PRN (15:11)
--- NOTE | 2017-09-29 15:32 | PDOREHIP ---
Admission IRF-[facility] - Admission - 3 Day Assessment Period Admission Date/Day 1: 09/29/17 Day 2: 09/30/17 Day 3: 10/01/17 - Active Diagnoses Comorbidities and Co-existing Conditions at Admission: 90342. PVD or PAD, 38910. None of the Above - Skin Conditions # Stage 1 Pressure Ulcers-Admission: 0 # Stage 2 Pressure Ulcers-Admission: 0 # Stage 3 Pressure Ulcers-Admission: 0 # Stage 4 Pressure Ulcers-Admission: 0 # Unstageable Pressure Ulcers (Non-remove Dress)-Admission: 0 # Unstageable Pressure Ulcers (Slough/Eschar)-Admission: 0 # Unstageable Pressure Ulcers (Deep Tissue Injury)-Admission: 0
[2017-09-29] MEDS ORDERED: WARFARIN SODIUM 5 MG TAB PO ONE (16:00)
--- NOTE | 2017-09-29 17:44 | GHP ---
[f rep st] HISTORY AND PHYSICAL POST ADMISSION PHYSICIAN EVALUATION AND REHABILITATION TREATMENT PLAN DATE OF ADMISSION: 09/29/2017 DATE OF EVALUATION: 09/29/2017 TIME OF EVALUATION: 3:00 p.m. REFERRING FACILITY: [facility] IMPAIRMENT GROUP: 2.21 - traumatic open injury. 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 ETIOLOGIC DIAGNOSIS: Frontal cortex right and left. REFERRING PHYSICIAN: Dr. Lerner CONSULTING PHYSICIANS: 1. Radha Khan MD. 2. Shasha Mullins MD. 3. Dr. Escobar. HISTORY OF PRESENT ILLNESS: Patient is a 62-year-old male with a previous history of right CVA with left hemiparesis and on anticoagulants, who was admitted to [facility], on 09/25 after being found down at site of wheelchair following a fall. It is unclear if by review of medical records and preadmission paperwork, whether this was a fall out of his wheelchair or a fall from standing position. Head CT obtained at [facility] was positive for acute small right frontal and left frontal intraparenchymal hemorrhages. He was stabilized and was felt to be medically stable enough to be transferred to the rehab unit for acute inpatient rehabilitation. According to the medical records, he was living in an apartment with daily help 3 hours per day, 5 days a week. He is a poor historian and was unable to verify this. On admission to [facility], he did have a CT of the head which showed 2 small intraparenchymal bleeds in the posterior right frontal lobe, and a contusion in the left frontal lobe. No subdural hematoma or shift was noted. A PET CT on 09/26 did not show any significant interval changes. On admission to [facility], white count was noted to be 15.4, hematocrit 48.9, platelets 260, INR 1.73, creatinine 0.1, blood glucose 114. Urinalysis negative. Dr. Escobar of neurosurgery was consulted, and he was felt to be neurologically stable. Dr. Escobar did not recommend any anticoagulation or reversing his current anticoagulation. No further recommendation was recommended as long as the patient remained neurologically stable. LABORATORY STUDIES: As per HPI. PRECAUTIONS: He is a fall risk. ACTIVE COMORBIDITIES: No known ongoing comorbidities. PAST MEDICAL HISTORY: History of CVA with left hemiparesis. Chronic anticoagulation for this spasticity. Neuropathic pain. PAST SURGICAL HISTORY: None per medical chart review. ADMISSION MEDICATIONS: Baclofen 30 mg p.o. q.h.s., gabapentin 300 mg p.o. q.h.s., lisinopril 20 mg p.o. daily, acetaminophen 650 q.4 hours p.r.n. pain, warfarin 4 mg daily and dosage to be adjusted per Pharmacy monitoring of INRs. ALLERGIES: No known drug allergies. REVIEW OF SYSTEMS: NEUROLOGICAL: Patient reports weakness of left upper and left lower extremity. Denies headache. HEENT: Denies visual disturbances. : Patient was not sure as to whether he had a Hurley catheter in place. He denied dysuria. GI: Patient unsure as to whether he is continent of bowel. MUSCULOSKELETAL: Patient denies myalgias or arthralgias. Otherwise, patient was a less than accurate historian to further comment on other review of systems. PHYSICAL EXAMINATION: VITAL SIGNS: Blood pressure 119/69, pulse 77 and regular , respirations 16, O2 sat 95. CONSTITUTIONAL: He appears comfortable sitting in a bedside chair. No acute distress. HEENT: Pupils equal, round, reactive to light and accommodation. Tracks across all visual nj. EOMI. Mucous membranes are moist. Dentition is fair. NECK: Supple. No cervical lymphadenopathy. CARDIOVASCULAR: Regular rate and rhythm. No obvious murmurs or gallops. No lower extremity edema. No right or left calf tenderness, swelling, or erythema. PULMONARY: Lungs clear to auscultation. ABDOMEN: Soft , nontender. Normoactive bowel sounds all 4 quadrants. No palpable masses. : A Hurley catheter in place. MUSCULOSKELETAL: Normal active range of motion right glenohumeral joint, right elbow, right wrist. Left upper extremity range of motion is markedly limited secondary to increased tone throughout. Passively could achieve neutral wrist, elbow flexion to -20 degrees. Active right hip, knee, and ankle range of motion are within functional limits. Left lower extremity range of motion deferred, secondary to patient position while seated in chair and noncompliance during this portion of the exam. NEUROLOGICAL : Cranial nerves 2 through 12 grossly intact, with the exception of the spinal accessory nerve which could not be tested due to patient's noncompliance. Right upper extremity strength is within functional limits in the proximal distal muscle groups. He has at least antigravity strength of the right hip flexors, quadriceps, hamstrings, 3/5 right ankle dorsiflexion, possibly volitional. Assessment of left upper and left lower extremity motor exam. Again, difficult to assess due to patient's noncompliance with this portion of exam. Could not elicit significant muscle recruitment of the shoulder girdle muscles, biceps, triceps, and wrist/finger extensors, hip flexors and ankle dorsiflexors. At this point of the exam patient was closing his eyes and not cooperating with exam. Could not assess left upper or left lower extremity sensation due to communication difficulties. MENTAL STATUS EXAMINATION: Patient is non-decisional. CURRENT LEVEL OF FUNCTION: Per preadmission screen. Diet: Regular textured diet, thin liquids, medications whole with liquids. Grooming: Max assist. Bathing: To be determined. Dressing: Upper body total assist; lower body total assist. Toileting: Pending further assessment. Bladder: Has Hurley catheter in place. Bowel: Continent. Bed, chair, wheelchair transfer: Moderate assist x2. Toilet transfers: Moderate to maximum assist x2, with squat pivot transfer. Shower transfer sitting: Contact guard. Standing: Moderate assist x2. Distance walked: Unknown. Possibly not assessed. Communication: Patient demonstrated severe impairment. Cognition: Severe impairment in attention and memory. Safety precautions: He is a fall risk. Lower extremity strength/range of motion: Decreased, noted in left upper and left lower extremity. IMPRESSION: This is a 62-year-old male with previous left hemiparesis, secondary to a cerebrovascular accident with new traumatic brain injury, resulting in frontal intraparenchymal hemorrhages due to recent fall. He has suffered a decrease in his cognitive status, as well as his functional status regarding ability to perform transfers and possibly ambulate short distances. He also has cognitive deficits, and is currently non-decisional. DISCUSSION/PLAN: He will benefit from acute inpatient rehabilitation services including physical and occupational therapy to optimize his mobility and activities of daily living so that he can achieve previous baseline functioning level. Anticipate patient will be moderate assist for eating and bed mobility. He may require standby assistance for transfers and dressing. He will require assistance for bathing and dressing. Patient will continue to need assistance for shopping, meal preparation, and household management. The patient would also benefit from speech therapy to optimize his communication and cognition. DISCHARGE DISPOSITION: At this time is unclear and will be verified by case management. He will have physical therapy, occupational therapy, and speech and language pathology for 60 minutes per day, 5-7 days per week. Expected duration of stay is 14-21 days. PLAN: 1. Traumatic brain injury secondary to right and left frontal intraparenchymal hemorrhages secondary to a fall. This has resulted in a new onset of cognitive deficits which will require comprehensive rehabilitation including physical, occupational, and speech therapy to help patient progress to previous baseline level. 2. Left hemiparesis secondary to previous right CVA. Again, the exact previous functional level is difficult to determine as patient is poor historian and no family members present. Once he is in physical therapy, we will get a better idea of how much functional movement he has from his left upper and left lower extremity. It is expected that he may be able to perform transfers with assistance and ambulate short distances with assistance and using a walker. 3. Secondary stroke prophylaxis: Currently taking warfarin 4 mg p.o. daily. INRs to be monitored, and pharmacy to adjust warfarin dosage as deemed necessary. 4. Neuropathic pain: Patient will continue on Neurontin 300 mg p.o. q.h.s. This is a low dose, and if he begins to complain of neuropathic pain, then we can always increase this. 5. Hypertension: Continue lisinopril 20 mg q. day. Will continue to monitor blood pressures daily. 6. Spasticity: Baclofen 30 mg p.o. q.h.s. This is unlikely to significantly reduce spasticity secondary to a left hemiparesis. He may benefit from stepping up the dose to a maximum of 120 mg if spasticity interferes with activities of daily living and mobility. 7. Bladder program: Currently has Hurley in place. Once he gets situated on the rehab floor, we may want to try a voiding trial and check post void residuals once the Hurley is removed. 8. Bowel program: Bowel meds are written for. Will monitor for constipation versus loose stools. /[id number]/MODL MTDD
[2017-09-29] MEDS: GABAPENTIN 300 MG CAP PO SCH (20:51)
[2017-09-29] MEDS: BACLOFEN 10 MG TAB PO SCH (20:51)
[2017-09-30] MEDS: LISINOPRIL 20 MG TAB PO SCH (08:19)
[2017-09-30 10:51] LABS: INR 3.33 (0.83-1.16); PROTIME(PATIENT) 33.6 SEC (12.0-15.0)
--- NOTE | 2017-09-30 19:37 | SOAPPROG ---
SOAP Progress Note Assessment/Plan: Assessment: * Traumatic brain injury d/t fall and right/left frontal intraparenchymal hemorrhages * cont PT/OT/speech * Left hemiparesis d/t previous CVA * Stroke prevention * coumadin. INR little supratherapeutic * Neuropathic pain * hypertension * cont lisinipril *spasticity * baclofen * bladder program * had condom cath which was dc'd Plan: 09/30/17 19:32 Subjective: Doing well. no new complaints Objective: Vital Signs Temp Pulse Resp BP Pulse Ox 36.8 C 91 18 123/70 H 94 09/30/17 18:22 09/30/17 18:22 09/30/17 18:22 09/30/17 18:22 09/30/17 18:22 Laboratory Results 09/30/17 06:30 09/29/17 09/30/17 10/01/17 05:59 05:59 05:59 Intake Total 950 596 Output Total 345 600 Balance 605 -4 PT 33.6 SEC (12.0-15.0) H 09/30/17 06:30 INR 3.33 (0.83-1.16) H 09/30/17 06:30 Physical Exam - Physical Exam General Appearance: WD/WN, alert, no apparent distress Respiratory: lungs clear, normal breath sounds Cardiac/Chest: regular rate, rhythm Abdomen: normal bowel sounds, non-tender, soft Skin: warm/dry Neuro/Psych: alert, oriented x 3, other (flattened affect) ICD10 Worksheet Patient Problems: Problems Problem Status Onset CVA (cerebral vascular accident) Acute Decubitus ulcer of left hip Acute ICH (intracerebral hemorrhage) Acute
[2017-09-30] MEDS: BACLOFEN 10 MG TAB PO SCH (21:03)
[2017-09-30] MEDS: GABAPENTIN 300 MG CAP PO SCH (21:04)
[2017-10-01] MEDS: LISINOPRIL 20 MG TAB PO SCH (08:22)
[2017-10-01 08:49] LABS: INR 2.55 (0.83-1.16); PROTIME(PATIENT) 27.4 SEC (12.0-15.0)
[2017-10-01] MEDS ORDERED: WARFARIN SODIUM 4 MG TAB PO ONE (16:00)
--- NOTE | 2017-10-01 19:31 | SOAPPROG ---
SOAP Progress Note Assessment/Plan: Assessment: * Traumatic brain injury d/t fall and right/left frontal intraparenchymal hemorrhages * cont PT/OT/speech * Left hemiparesis d/t previous CVA * Stroke prevention * coumadin. INR therapeutic * Neuropathic pain * hypertension * cont lisinipril *spasticity * baclofen * bladder program * had condom cath which was dc'd Subjective: No new complaints Objective: Vital Signs Temp Pulse Resp BP Pulse Ox 37.1 C 94 16 117/76 93 10/01/17 18:32 10/01/17 18:32 10/01/17 18:32 10/01/17 18:32 10/01/17 18:32 Laboratory Results 09/30/17 06:30 09/30/17 10/01/17 10/02/17 05:59 05:59 05:59 Intake Total 950 996 480 Output Total 345 900 250 Balance 605 96 230 PT 27.4 SEC (12.0-15.0) H 10/01/17 06:10 INR 2.55 (0.83-1.16) H 10/01/17 06:10 Physical Exam - Physical Exam General Appearance: WD/WN, alert, no apparent distress Respiratory: lungs clear, normal breath sounds, No respiratory distress Cardiac/Chest: regular rate, rhythm Abdomen: non-tender, soft Neuro/Psych: alert, normal mood/affect ICD10 Worksheet Patient Problems: Problems Problem Status Onset CVA (cerebral vascular accident) Acute Decubitus ulcer of left hip Acute ICH (intracerebral hemorrhage) Acute
[2017-10-01] MEDS: BACLOFEN 10 MG TAB PO SCH (20:39)
[2017-10-01] MEDS: GABAPENTIN 300 MG CAP PO SCH (20:39)
[2017-10-02] MEDS: LISINOPRIL 20 MG TAB PO SCH (08:03)
[2017-10-02 08:26] LABS: INR 2.12 (0.83-1.16); PROTIME(PATIENT) 23.8 SEC (12.0-15.0)
[2017-10-02] MEDS ORDERED: FLU VACC QS 2017-18 (3YR+)/PF 0.5 ML SYR (FLUARIX QUAD) IM ONE (13:09)
--- NOTE | 2017-10-02 13:20 | SOAPPROG ---
SOAP Progress Note Assessment/Plan: Assessment: * traumatic brain injury secondary to right and the left frontal intraparenchymal hemorrhages secondary to fall-he is still confused and disoriented. Hopefully this will clear over the next week or so. Continue with physical, occupational speech therapy to help return to baseline status. Left hemiparesis secondary to old right CVA. Again goal should be returning patient back to his previous baseline. From talking to rehab staff today he apparently was living in an apartment with regular caregivers. Stroke prophylaxis-INR from 10/01 was 2.55, 10/02 was 2.12. Continue daily Coumadin which will be adjusted per pharmacy. Neuropathic pain continue Neurontin 300 at bedtime. Hypertension lisinopril 20 q.day. Blood pressure this morning was 138/77 Spasticity continue baclofen 30 mg at bedtime. If therapy reports increased lower extremity tone is interfering with bed mobility, transfers and standing and/or ambulation then will increase dosage. Bladder program apparently the condom cath was discontinued over the weekend. Plan: 10/02/17 13:23 Subjective: He reports vague and diffuse soreness. Per nursing and rehab staff he was disoriented over the weekend. He denies headache, chest pain or shortness of breath. Objective: Vital Signs Temp Pulse Resp BP Pulse Ox 37.0 C 65 16 138/77 H 94 10/02/17 06:27 10/02/17 06:27 10/02/17 06:27 10/02/17 06:27 10/02/17 06:27 Laboratory Results 09/30/17 06:30 10/01/17 10/02/17 10/03/17 05:59 05:59 05:59 Intake Total 996 680 Output Total 900 550 750 Balance 96 130 -750 PT 23.8 SEC (12.0-15.0) H 10/02/17 06:25 INR 2.12 (0.83-1.16) H 10/02/17 06:25 Physical Exam - Physical Exam General Appearance: alert, no apparent distress Respiratory: lungs clear, normal breath sounds Cardiac/Chest: No edema Abdomen: normal bowel sounds, non-tender, soft Skin: normal color, warm/dry Neuro/Psych: motor weakness (Neurological exam is consistent with left hemiplegia.), cognition abnormalities, No oriented x 3 ICD10 Worksheet Patient Problems: Problems Problem Status Onset CVA (cerebral vascular accident) Acute Decubitus ulcer of left hip Acute ICH (intracerebral hemorrhage) Acute
[2017-10-02] MEDS ORDERED: WARFARIN SODIUM 5 MG TAB PO SCH (16:00)
[2017-10-02] MEDS: BACLOFEN 10 MG TAB PO SCH (20:24)
[2017-10-02] MEDS: GABAPENTIN 300 MG CAP PO SCH (20:24)
[2017-10-03] MEDS: LISINOPRIL 20 MG TAB PO SCH (08:20)
[2017-10-03 10:21] LABS: INR 2.12 (0.83-1.16); PROTIME(PATIENT) 23.8 SEC (12.0-15.0)
--- NOTE | 2017-10-03 14:40 | SOAPPROG ---
SOAP Progress Note Assessment/Plan: 62-year-old male with a history of a prior right CVA with left hemiparesis on chronic anticoagulation now status post likely traumatic brain injury after being found down at the site of his wheelchair after a fall, with right frontal and left frontal intraparenchymal hemorrhages. Today's update: Patient participating well in therapies. May not have sufficient caregiver support for supporting a home discharge. Continue to monitor. Patient also endorses some occasional pain in numbness in his left hip that corrects with positioning changes. He is working with therapist on this issue and I spoke with occupational therapy personally about it. Continue to monitor his urinary symptoms, he does not endorse any dysuria. Warfarin should continue, INR stable today at 2.12. Appreciate help from pharmacy for management. A total of 35 min was spent on the floor in the care of the patient , the majority of which was spent in the counseling and coordination of care regarding functional position in discharge planning. All medical issues are new to this provider. Traumatic brain injury secondary to right and the left frontal intraparenchymal hemorrhages secondary to fall-he is still confused and disoriented. Anticipate this will improve. Requires substantial structure and cuing for therapies. * Continue with physical, occupational speech therapy for impairments in cognition and communication. 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 Again goal should be returning patient back to his previous baseline. * Work to address support system at home and whether not he will support new functional level Stroke prophylaxis-INR stable at low 2s * Continue daily Coumadin which will be adjusted per pharmacy. Appreciate assistance Neuropathic pain * continue Neurontin 300 at bedtime. Hypertension : Primary * lisinopril 20 q.day. * Monitor Spasticity * continue baclofen 30 mg at bedtime. * If therapy reports increased lower extremity tone is interfering with bed mobility, transfers and standing and/or ambulation then will increase dosage. Bladder program: Reports some urinary frequency, but no dysuria or other changes. * No UA indicated at this point, continue to monitor clinically and check UA if he experiences dysuria * Condom catheter at night * Evaluate for daytime changes Goal to discharge home with caregiver support, though he may need a higher level of care. Continue to monitor closely 10/03/17 14:34 Subjective: Complaint: Hip discomfort No acute events overnight. Patient endorses some left-sided hip pain and numbness that he associates with positioning, it resolves when he is able to stretch out. Has not had previously, but has been experiencing the past couple days. No other new numbness, tingling, or weakness, no new shortness of breath or chest pain. Participating well in therapies, per discussion with social work he may not have sufficient support systems to his have a safe discharge home, continue to monitor and try to identify additional resources or assisted living environment. Objective: Vital Signs Temp Pulse Resp BP Pulse Ox 36.9 C 71 16 114/72 94 10/03/17 07:24 10/03/17 07:24 10/03/17 07:24 10/03/17 07:24 10/03/17 07:24 Laboratory Results 09/30/17 06:30 10/02/17 10/03/17 10/04/17 05:59 05:59 05:59 Intake Total 680 250 586 Output Total 550 1725 600 Balance 130 -1475 -14 PT 23.8 SEC (12.0-15.0) H 10/03/17 06:00 INR 2.12 (0.83-1.16) H 10/03/17 06:00 Physical Exam - Physical Exam General Appearance: WD/WN, alert, no apparent distress EENT: No scleral icterus (R), No scleral icterus (L) Respiratory: No respiratory distress, No accessory muscle use Cardiac/Chest: normal peripheral pulses, regular rate, rhythm, No edema Skin: normal color, warm/dry, No cyanosis, No diaphoresis Extremities: other (No contractures in the upper limb noted), No pedal edema, No swelling Neuro/Psych: alert, normal mood/affect, motor weakness, other (He was not oriented to date. Dense left-sided spastic paralysis of the arm, 2 on the modified Kaden scale. No pain, did not appear to have contracture.) ICD10 Worksheet Patient Problems: Problems Problem Status Onset CVA (cerebral vascular accident) Acute Decubitus ulcer of left hip Acute ICH (intracerebral hemorrhage) Acute
[2017-10-03] MEDS ORDERED: WARFARIN SODIUM 5 MG TAB PO ONE (16:00)
[2017-10-03] MEDS: BACLOFEN 10 MG TAB PO SCH (20:52)
[2017-10-03] MEDS: GABAPENTIN 300 MG CAP PO SCH (20:52)
[2017-10-04] MEDS: LISINOPRIL 20 MG TAB PO SCH (08:38)
--- NOTE | 2017-10-04 11:30 | SOAPPROG ---
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 He did seem a little bit more alert and oriented to this examiner today compared to initial evaluation. Speech therapy reports he is confused, somewhat paranoid. Rancho score 4/5 * Continue with physical, occupational speech therapy for impairments in cognition and communication. 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 Again goal should be returning patient back to his previous baseline. * HE IS STANDBY ASSIST TO PERFORM ACTIVITIES. HE HAS A FEAR OF FALLING. HE CAN PERFORM SIT TO STAND TRANSFERS USING A QUAD CANE WITH STAND PIVOT. HE IS AMBULATING 15-30 FEET WITH EF WW BUT NEEDS EMOTIONAL SUPPORT AND CUING. HE IS STANDBY ASSIST TO MINIMAL ASSIST WITH WHEELCHAIR MOBILITY. OCCUPATIONAL THERAPY REPORTS HE IS MIN ASSIST WITH HYGIENE AND GROOMING. HE IS CONTACT GUARD WITH TOILET TRANSFERS. UPPER EXTREMITY DRESSING MIN TO MOD ASSIST, LOWER EXTREMITY MOD ASSIST. BATHING HE IS MODERATE ASSIST TRANSFERRING TO BENCH. Stroke prophylaxis-INR stable at low 2s * Continue daily Coumadin which will be adjusted per pharmacy. Appreciate assistance Neuropathic pain * continue Neurontin 300 at bedtime. Hypertension : Primary * lisinopril 20 q.day. * Monitor Spasticity * continue baclofen 30 mg at bedtime. * If therapy reports increased lower extremity tone is interfering with bed mobility, transfers and standing and/or ambulation then will increase dosage. Bladder program: Due to his request to be taken to the bathroom to urinate several times per hour, will obtain urine for UA to rule out UTI. Lab work-will obtain BMP to look for hyponatremia as well as to check for serum sodium osmolality to rule out SIADH. Case management-case management is in process of contacting brother regarding legal issues of POA. She is also looking into various discharge disposition is including long-term care facility options. 10/03/17 14:34 Subjective: Complaint: Hip discomfort * traumatic brain injury secondary to right and the left frontal intraparenchymal hemorrhages secondary to fall-he is still confused and disoriented. Hopefully this will clear over the next week or so. Continue with physical, occupational speech therapy to help return to baseline status. Left hemiparesis secondary to old right CVA. Again goal should be returning patient back to his previous baseline. From talking to rehab staff today he apparently was living in an apartment with regular caregivers. Stroke prophylaxis-INR from 10/01 was 2.55, 10/02 was 2.12. Continue daily Coumadin which will be adjusted per pharmacy. Neuropathic pain continue Neurontin 300 at bedtime. Hypertension lisinopril 20 q.day. Blood pressure this morning was 138/77 Spasticity continue baclofen 30 mg at bedtime. If therapy reports increased lower extremity tone is interfering with bed mobility, transfers and standing and/or ambulation then will increase dosage. Bladder program apparently the condom cath was discontinued over the weekend. Plan: 10/02/17 13:23 10/04/17 11:25 Subjective: No complaints per patient. Nursing reports that he was agitated and combative last night with an episode where he apparently called the police to let them know that he was being held in the basement. He threw his phone out of the room. Both the night and daytime nurses report that he is asking to go to the bathroom several times per hour. Exact amount of urination during these episodes are unknown. Objective: Vital Signs Temp Pulse Resp BP Pulse Ox 37.3 C 100 16 117/82 H 95 10/03/17 18:34 10/03/17 18:34 10/03/17 18:34 10/04/17 08:38 10/03/17 18:34 Laboratory Results 09/30/17 06:30 10/03/17 10/04/17 10/05/17 05:59 05:59 05:59 Intake Total 250 886 Output Total 172 1745 Balance -1475 -859 PT 23.8 SEC (12.0-15.0) H 10/03/17 06:00 INR 2.12 (0.83-1.16) H 10/03/17 06:00 Physical Exam - Physical Exam General Appearance: WD/WN, alert, no apparent distress Respiratory: lungs clear, normal breath sounds Cardiac/Chest: No edema Abdomen: non-tender, soft Extremities: No swelling, No Scooby's sign Neuro/Psych: alert, motor weakness (Left hemiparesis), cognition abnormalities, other (Oriented to place, month, but not year (2016) could not recite any current events.) ICD10 Worksheet Patient Problems: Problems Problem Status Onset CVA (cerebral vascular accident) Acute Decubitus ulcer of left hip Acute ICH (intracerebral hemorrhage) Acute
[2017-10-04 13:09] LABS: INR 1.85 (0.83-1.16); PROTIME(PATIENT) 21.4 SEC (12.0-15.0)
[2017-10-04] MEDS ORDERED: WARFARIN SODIUM 5 MG TAB PO ONE (16:00)
[2017-10-04] MEDS: GABAPENTIN 300 MG CAP PO SCH (20:22)
[2017-10-04] MEDS: BACLOFEN 10 MG TAB PO SCH (20:22)
[2017-10-05 08:06] LABS: INR 2.02 (0.83-1.16); PROTIME(PATIENT) 22.9 SEC (12.0-15.0)
[2017-10-05] MEDS: LISINOPRIL 20 MG TAB PO SCH (08:20)
--- NOTE | 2017-10-05 11:41 | SOAPPROG ---
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 He did seem a little bit more alert and oriented to this examiner today compared to initial evaluation. Speech therapy reports he is confused, somewhat paranoid. Rancho score 4/5. RECENT SODIUM LEFT FROM YESTERDAY WAS 142 , NOT CONSISTENT WITH SIADH. AWAITING URINE SODIUM OSMOLALITY. * Continue with physical, occupational speech therapy for impairments in cognition and communication. 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 Again goal should be returning patient back to his previous baseline. PER TEAM MEETING 10/04 * HE IS STANDBY ASSIST TO PERFORM ACTIVITIES. HE HAS A FEAR OF FALLING. HE CAN PERFORM SIT TO STAND TRANSFERS USING A QUAD CANE WITH STAND PIVOT. HE IS AMBULATING 15-30 FEET WITH EF WW BUT NEEDS EMOTIONAL SUPPORT AND CUING. HE IS STANDBY ASSIST TO MINIMAL ASSIST WITH WHEELCHAIR MOBILITY. OCCUPATIONAL THERAPY REPORTS HE IS MIN ASSIST WITH HYGIENE AND GROOMING. HE IS CONTACT GUARD WITH TOILET TRANSFERS. UPPER EXTREMITY DRESSING MIN TO MOD ASSIST, LOWER EXTREMITY MOD ASSIST. BATHING HE IS MODERATE ASSIST TRANSFERRING TO BENCH. Stroke prophylaxis-INR YESTERDAY WAS 2.0 * Continue daily Coumadin which will be adjusted per pharmacy. Appreciate assistance Neuropathic pain * continue Neurontin 300 at bedtime. Hypertension : Primary * lisinopril 20 q.day. * Monitor Spasticity * continue baclofen 30 mg at bedtime. * If therapy reports increased lower extremity tone is interfering with bed mobility, transfers and standing and/or ambulation then will increase dosage. Bladder program: Due to his request to be taken to the bathroom to urinate several times per hour, will obtain urine for UA to rule out UTI. Case management-case management is in process of contacting brother regarding legal issues of POA. She is also looking into various discharge disposition is including long-term care facility options. Subjective: PATIENT REPORTS HE SLEPT WELL LAST P.M.. NO PROBLEMS REPORTED BY NURSING OR REHAB STAFF. Objective: Vital Signs Temp Pulse Resp BP Pulse Ox 36.9 C 74 15 104/70 94 10/05/17 06:30 10/05/17 06:30 10/05/17 06:30 10/05/17 08:20 10/05/17 06:30 Laboratory Results 10/05/17 06:25 10/04/17 10/05/17 10/06/17 05:59 05:59 05:59 Intake Total 886 1358 628 Output Total 1745 600 275 Balance -859 758 353 PT 22.9 SEC (12.0-15.0) H 10/05/17 06:25 INR 2.02 (0.83-1.16) H 10/05/17 06:25 Physical Exam - Physical Exam General Appearance: WD/WN, alert, no apparent distress Respiratory: chest non-tender, lungs clear Abdomen: normal bowel sounds, non-tender, soft Skin: normal color, warm/dry Neuro/Psych: motor weakness (NEUROLOGICAL EXAM CONSISTENT WITH LEFT HEMIPARESIS ; 2+ 3-/5 LEFT HIP FLEXORS AND LEFT QUADRICEPS.), cognition abnormalities ICD10 Worksheet Patient Problems: Problems Problem Status Onset CVA (cerebral vascular accident) Acute Decubitus ulcer of left hip Acute ICH (intracerebral hemorrhage) Acute
[2017-10-05] MEDS ORDERED: WARFARIN SODIUM 3 MG TAB PO ONE (16:00)
[2017-10-05] MEDS: BACLOFEN 10 MG TAB PO SCH (20:31)
[2017-10-05] MEDS: GABAPENTIN 300 MG CAP PO SCH (20:31)
[2017-10-06] MEDS: LISINOPRIL 20 MG TAB PO SCH (08:20)
[2017-10-06 09:45] LABS: INR 1.88 (0.83-1.16); PROTIME(PATIENT) 21.7 SEC (12.0-15.0)
--- NOTE | 2017-10-06 11:26 | SOAPPROG ---
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 He did seem a little bit more alert and oriented to this examiner today compared to initial evaluation. Speech therapy reports he is confused, somewhat paranoid. Rancho score 4/5. RECENT SODIUM LEFT FROM YESTERDAY 10/04 WAS 142, NOT CONSISTENT WITH SIADH. AWAITING URINE SODIUM OSMOLALITY. * Continue with physical, occupational speech therapy for impairments in cognition and communication. * Minimize delirium inducing medications * Monitor for neurologic changes with low threshold to reimage Possible BPH versus prostatitis-based on frequent requests to urinate with very little volume. Previously obtained urinalysis was clear. Begin Flomax 0.4 mg today. May consider antibiotics treatment for possible prostatitis the Flomax does not improve symptoms. Left hemiparesis secondary to old right CVA. Again goal should be returning patient back to his previous baseline. PER TEAM MEETING 10/04 * HE IS STANDBY ASSIST TO PERFORM ACTIVITIES. HE HAS A FEAR OF FALLING. HE CAN PERFORM SIT TO STAND TRANSFERS USING A QUAD CANE WITH STAND PIVOT. HE IS AMBULATING 15-30 FEET WITH EF WW BUT NEEDS EMOTIONAL SUPPORT AND CUING. HE IS STANDBY ASSIST TO MINIMAL ASSIST WITH WHEELCHAIR MOBILITY. OCCUPATIONAL THERAPY REPORTS HE IS MIN ASSIST WITH HYGIENE AND GROOMING. HE IS CONTACT GUARD WITH TOILET TRANSFERS. UPPER EXTREMITY DRESSING MIN TO MOD ASSIST, LOWER EXTREMITY MOD ASSIST. BATHING HE IS MODERATE ASSIST TRANSFERRING TO BENCH. Stroke prophylaxis-INR today was 1.88 * Continue daily Coumadin which will be adjusted per pharmacy. Appreciate assistance Neuropathic pain * continue Neurontin 300 at bedtime. Hypertension : Primary * lisinopril 20 q.day. * Monitor Spasticity * continue baclofen 30 mg at bedtime. * If therapy reports increased lower extremity tone is interfering with bed mobility, transfers and standing and/or ambulation then will increase dosage. Bladder program: Due to his request to be taken to the bathroom to urinate several times per hour, will obtain urine for UA to rule out UTI. Case management-case management is in process of contacting brother regarding legal issues of POA. She is also looking into various discharge disposition is including long-term care facility options. 10/06/17 11:22 10/06/17 11:27 Subjective: In no complaints per patient. His occupation therapist states that he interrupts therapy 3-4 times per session with complaints that he has to urinate. Objective: Vital Signs Temp Pulse Resp BP Pulse Ox 36.9 C 75 16 107/73 95 10/06/17 06:57 10/06/17 06:57 10/06/17 06:57 10/06/17 08:20 10/06/17 06:57 Laboratory Results 10/05/17 06:25 10/05/17 10/06/17 10/07/17 05:59 05:59 05:59 Intake Total 1358 1346 370 Output Total 600 1550 30 Balance 758 -204 340 PT 21.7 SEC (12.0-15.0) H 10/06/17 06:40 INR 1.88 (0.83-1.16) H 10/06/17 06:40 Physical Exam - Physical Exam General Appearance: no apparent distress Respiratory: chest non-tender, lungs clear, normal breath sounds Abdomen: non-tender, soft, other (No suprapubic tenderness) Neuro/Psych: motor weakness (Left hemiplegia with left upper extremity weakness greater than left lower extremity weakness. No change from admission neurological exam.), cognition abnormalities ICD10 Worksheet Patient Problems: Problems Problem Status Onset CVA (cerebral vascular accident) Acute Decubitus ulcer of left hip Acute ICH (intracerebral hemorrhage) Acute
[2017-10-06] MEDS: TAMSULOSIN HCL 0.4 MG CAP PO SCH (12:09)
[2017-10-06] MEDS ORDERED: WARFARIN SODIUM 3 MG TAB PO ONE (16:00)
[2017-10-06] MEDS: GABAPENTIN 300 MG CAP PO SCH (19:59)
[2017-10-06] MEDS: BACLOFEN 10 MG TAB PO SCH (19:59)
[2017-10-07 08:36] LABS: INR 1.97 (0.83-1.16); PROTIME(PATIENT) 22.5 SEC (12.0-15.0)
[2017-10-07] MEDS: TAMSULOSIN HCL 0.4 MG CAP PO SCH (09:03)
[2017-10-07] MEDS: LISINOPRIL 20 MG TAB PO SCH (09:03)
--- NOTE | 2017-10-07 10:27 | SOAPPROG ---
SOAP Progress Note Assessment/Plan: Assessment/Plan: Mr. Lainez is a 62 y/o male s/p fall with resultant left and right frontal intraparenchymal hemorrhages. 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 Speech therapy reports he is confused, somewhat paranoid. Rancho score 4/5 on admission * Continue with physical, occupational speech therapy for impairments in cognition and communication. * Minimize delirium inducing medications * Monitor for neurologic changes with low threshold to re-image Possible BPH versus prostatitis-based on frequent requests to urinate with very little volume. Started flomax 10/05 to support output. Likely more consistent with perseveration. Will gather another UA 10/07. Place condom cath to east pt' s concern to maintain continence Left hemiparesis secondary to old right CVA. Again goal should be returning patient back to his previous baseline. PER TEAM MEETING 10/04 * HE IS STANDBY ASSIST TO PERFORM ACTIVITIES. HE HAS A FEAR OF FALLING. HE CAN PERFORM SIT TO STAND TRANSFERS USING A QUAD CANE WITH STAND PIVOT. HE IS AMBULATING 15-30 FEET WITH EF WW BUT NEEDS EMOTIONAL SUPPORT AND CUING. HE IS STANDBY ASSIST TO MINIMAL ASSIST WITH WHEELCHAIR MOBILITY. OCCUPATIONAL THERAPY REPORTS HE IS MIN ASSIST WITH HYGIENE AND GROOMING. HE IS CONTACT GUARD WITH TOILET TRANSFERS. UPPER EXTREMITY DRESSING MIN TO MOD ASSIST, LOWER EXTREMITY MOD ASSIST. BATHING HE IS MODERATE ASSIST TRANSFERRING TO BENCH. Stroke prophylaxis-INR today was 1.97, unclear of diagnosis- query Afib? * Continue daily Coumadin which will be adjusted per pharmacy. Appreciate assistance Neuropathic pain * continue Neurontin 300 at bedtime. Hypertension : Primary * lisinopril 20 q.day. * Monitor Spasticity * continue baclofen 30 mg at bedtime. * If therapy reports increased lower extremity tone is interfering with bed mobility, transfers and standing and/or ambulation then will increase dosage. Bladder program: Due to his request to be taken to the bathroom to urinate several times per hour, will obtain urine for UA to rule out UTI. Case management-case management is in process of contacting brother regarding legal issues of POA. She is also looking into various discharge disposition is including long-term care facility options. Today's Plan: Will trial placement of a condom cath ease pt's concerns about having adequate ability to place the urinal. Low bladder scans today and only urinating 20-30ml per urination. evaluation UA on 10/04 without concern for infection. May be more consistent with perseveration from recent head injury. COntinue to monitor - no demonstrating large volumes consistent with CSF or DI. Will get cbc and BMP in the morning. APpreciate pharmacy supporting for pt's INR levels. Change flomax to qhs to decrease chance of hypotension (especially with alpha blockade and renin/angiotensin blockade combined). 10/07/17 10:22 Subjective: Doing pretty well today - discussing that knows that some times he is confused and that trying to convince others to see his way even when it likely isn't what should be happening. Reporting that feels urges to void - concerned about being incontinent. No new fevers/chills, no pain currently Objective: Vital Signs Temp Pulse Resp BP Pulse Ox 36.6 C 81 16 128/75 H 93 10/07/17 08:00 10/07/17 08:00 10/07/17 08:00 10/07/17 09:03 10/07/17 08:00 Laboratory Results 10/05/17 06:25 10/06/17 10/07/17 10/08/17 05:59 05:59 06:59 Intake Total 1346 730 Output Total 1550 580 75 Balance -204 150 -75 PT 22.5 SEC (12.0-15.0) H 10/07/17 06:00 INR 1.97 (0.83-1.16) H 10/07/17 06:00 Physical Exam - Physical Exam General Appearance: alert, no apparent distress EENT: other (Pupils are equal and reactive, normal facial movement with smile. ) Respiratory: lungs clear, normal breath sounds Cardiac/Chest: regular rate, rhythm Abdomen: non-tender, soft Skin: normal color Extremities: non-tender Neuro/Psych: other (Pt alert but pretty disoriented overall - struggled providing information about his life prior to his hospitalization. Per review with RN's this is his baseline cognitive state - also has been perseverative regarding his bladder function) ICD10 Worksheet Patient Problems: Problems Problem Status Onset CVA (cerebral vascular accident) Acute Decubitus ulcer of left hip Acute ICH (intracerebral hemorrhage) Acute
[2017-10-07] MEDS ORDERED: QUEtiapine FUMARATE 25 MG TAB PO PRN (10:36)
[2017-10-07] MEDS ORDERED: WARFARIN SODIUM 3 MG TAB PO ONE (16:00)
[2017-10-07] MEDS: BACLOFEN 10 MG TAB PO SCH (20:01)
[2017-10-07] MEDS: GABAPENTIN 300 MG CAP PO SCH (20:01)
[2017-10-08] MEDS: LISINOPRIL 20 MG TAB PO SCH (07:55)
[2017-10-08 08:51] LABS: PLATELET COUNT 324 10^3/uL (150-400)
[2017-10-08 08:57] LABS: INR 1.94 (0.83-1.16); PROTIME(PATIENT) 22.2 SEC (12.0-15.0)
--- NOTE | 2017-10-08 10:33 | SOAPPROG ---
SOAP Progress Note Assessment/Plan: Assessment/Plan: Mr. Lainez is a 62 y/o male s/p fall with resultant left and right frontal intraparenchymal hemorrhages. 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 Speech therapy reports he is confused, somewhat paranoid. Rancho score 4/5 on admission * Continue with physical, occupational speech therapy for impairments in cognition and communication. * Minimize delirium inducing medications * Monitor for neurologic changes with low threshold to re-image Possible BPH versus prostatitis-based on frequent requests to urinate with very little volume. Started flomax 10/05 to support output. Likely more consistent with perseveration. Will gather another UA 10/07. Place condom cath to east pt' s concern to maintain continence Left hemiparesis secondary to old right CVA. Again goal should be returning patient back to his previous baseline. PER TEAM MEETING 10/04 * HE IS STANDBY ASSIST TO PERFORM ACTIVITIES. HE HAS A FEAR OF FALLING. HE CAN PERFORM SIT TO STAND TRANSFERS USING A QUAD CANE WITH STAND PIVOT. HE IS AMBULATING 15-30 FEET WITH EF WW BUT NEEDS EMOTIONAL SUPPORT AND CUING. HE IS STANDBY ASSIST TO MINIMAL ASSIST WITH WHEELCHAIR MOBILITY. OCCUPATIONAL THERAPY REPORTS HE IS MIN ASSIST WITH HYGIENE AND GROOMING. HE IS CONTACT GUARD WITH TOILET TRANSFERS. UPPER EXTREMITY DRESSING MIN TO MOD ASSIST, LOWER EXTREMITY MOD ASSIST. BATHING HE IS MODERATE ASSIST TRANSFERRING TO BENCH. Stroke prophylaxis-INR today was 1.97, unclear of diagnosis * Continue daily Coumadin which will be adjusted per pharmacy. Appreciate assistance Neuropathic pain * continue Neurontin 300 at bedtime. Hypertension : Primary * lisinopril 20 q.day. * Monitor Spasticity * continue baclofen 30 mg at bedtime. * If therapy reports increased lower extremity tone is interfering with bed mobility, transfers and standing and/or ambulation then will increase dosage. Bladder program: Due to his request to be taken to the bathroom to urinate several times per hour, will obtain urine for UA to rule out UTI. Case management-case management is in process of contacting brother regarding legal issues of POA. She is also looking into various discharge disposition is including long-term care facility options. Today's Plan: Pt struggled with condom cath -reports that pulled on pubic hairs. Continues to request to use urinal/bathroom often. Query whether has hyperactive bladder - no evidence of Infection per symptoms/labs/vitals. NO reported incontinence per RN. Pt may benefit from Urodynamic at some point to determine if truly hyperactive vs other. Trial of "timed voiding" today to give patient a target. Considering starting anticholinergic- would more favor vesicare given improved specificity for bladder muscarinic receptors to minimize cognitive effects 10/08/17 10:30 Subjective: No new concerns this morning - reoprts a sense of urgency intermittently to use the restroom - has low volumes. no evidence of incontinence per discussion with RN - did sleep well last night. Pt not reporting pain or discomfort, no burning with urination. Objective: Vital Signs Temp Pulse Resp BP Pulse Ox 36.7 C 90 15 135/81 H 95 10/08/17 07:54 10/08/17 07:54 10/08/17 07:54 10/08/17 07:55 10/08/17 07:54 Laboratory Results 10/08/17 06:30 10/08/17 06:30 10/07/17 10/08/17 10/09/17 04:59 05:59 05:59 Intake Total Output Total Balance PT 22.2 SEC (12.0-15.0) H 10/08/17 06:30 INR 1.94 (0.83-1.16) H 10/08/17 06:30 Physical Exam - Physical Exam General Appearance: alert Respiratory: lungs clear, normal breath sounds Cardiac/Chest: regular rate, rhythm Abdomen: non-tender, soft Skin: warm/dry Neuro/Psych: alert ICD10 Worksheet Patient Problems: Problems Problem Status Onset CVA (cerebral vascular accident) Acute Decubitus ulcer of left hip Acute ICH (intracerebral hemorrhage) Acute
[2017-10-08] MEDS ORDERED: WARFARIN SODIUM 5 MG TAB PO ONE (16:00)
[2017-10-08] MEDS ORDERED: WARFARIN SODIUM 2 MG TAB PO ONE (16:00)
[2017-10-08] MEDS: GABAPENTIN 300 MG CAP PO SCH (20:35)
[2017-10-08] MEDS: TAMSULOSIN HCL 0.4 MG CAP PO SCH (20:35)
[2017-10-08] MEDS: BACLOFEN 10 MG TAB PO SCH (20:36)
[2017-10-09] MEDS: LISINOPRIL 20 MG TAB PO SCH (08:16)
[2017-10-09 08:24] LABS: INR 2.15 (0.83-1.16)
--- NOTE | 2017-10-09 11:54 | SOAPPROG ---
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 THERAPY STAFF REPORTS THAT HE IS SHOWING INITIATION WITH WHEELCHAIR TO STANDING TRANSFERS AND WHEN GOING TO THE BATHROOM AND IS CLOSE TO BECOMING INDEPENDENT IN HIS ROOM. HE CONTINUES TO BE CONFUSED AND DISORIENTED. * Continue with physical, occupational speech therapy for impairments in cognition and communication. * Minimize delirium inducing medications * Monitor for neurologic changes with low threshold to reimage Possible BPH versus prostatitis-based on frequent requests to urinate with very little volume. URINALYSIS X2 WERE NEGATIVE. FLOMAX 0.4 MG WAS STARTED LAST WEEK BUT PATIENT STILL COMPLAINS OF HAVING THE SENSATION TO HAVE TO VOID FREQUENTLY. MAY HAVE PROSTATITIS AND THEREFORE WILL DEFER TO DR. SUAREZ TO SEE IF HE WANTS TO INITIATE ANTIBIOTICS FOR THIS. Left hemiparesis secondary to old right CVA. Again goal should be returning patient back to his previous baseline. PER TEAM MEETING 10/04 * HE IS STANDBY ASSIST TO PERFORM ACTIVITIES. HE HAS A FEAR OF FALLING. HE CAN PERFORM SIT TO STAND TRANSFERS USING A QUAD CANE WITH STAND PIVOT. HE IS AMBULATING 15-30 FEET WITH EF WW BUT NEEDS EMOTIONAL SUPPORT AND CUING. HE IS STANDBY ASSIST TO MINIMAL ASSIST WITH WHEELCHAIR MOBILITY. OCCUPATIONAL THERAPY REPORTS HE IS MIN ASSIST WITH HYGIENE AND GROOMING. HE IS CONTACT GUARD WITH TOILET TRANSFERS. UPPER EXTREMITY DRESSING MIN TO MOD ASSIST, LOWER EXTREMITY MOD ASSIST. BATHING HE IS MODERATE ASSIST TRANSFERRING TO BENCH. Stroke prophylaxis-INR today was 2.15 * Continue daily Coumadin which will be adjusted per pharmacy. Appreciate assistance * ANXIETY-SEROQUEL STARTED OVER THE WEEKEND 12.5 MG TWICE DAILY P.R.N. PER DR. THOMAS. I HAVE DISCONTINUED THIS AND WILL CHANGE IT TO 12.5 MG TWICE DAILY. Neuropathic pain * continue Neurontin 300 at bedtime. Hypertension : Primary * lisinopril 20 q.day. * Monitor Spasticity * continue baclofen 30 mg at bedtime. * If therapy reports increased lower extremity tone is interfering with bed mobility, transfers and standing and/or ambulation then will increase dosage. Bladder program: Due to his request to be taken to the bathroom to urinate several times per hour, will obtain urine for UA to rule out UTI. Case management-case management is in process of contacting brother regarding legal issues of POA. She is also looking into various discharge disposition is including long-term care facility options. 10/06/17 11:22 10/06/17 11:27 10/09/17 11:56 Subjective: HE REPORTS THAT HE IS FEELING SOMEWHAT CONFUSED AND DISORIENTED. THE WEEKEND THERAPY STAFF SAYS THAT HE WAS REPORTING URINARY URGENCY WHICH WAS DISRUPTIVE TO SOME OF HIS THERAPY SESSIONS. HE DID NOT REPORT THAT WITH ME THIS MORNING. Objective: Vital Signs Temp Pulse Resp BP Pulse Ox 36.6 C 105 H 18 112/67 95 10/09/17 08:00 10/09/17 08:00 10/09/17 08:00 10/09/17 08:16 10/09/17 08:00 Laboratory Results 10/08/17 06:30 10/08/17 06:30 10/08/17 10/09/17 10/10/17 05:59 05:59 05:59 Intake Total 1100 600 Output Total 825 Balance 275 600 PT 24.0 SEC (12.0-15.0) H 10/09/17 06:40 INR 2.15 (0.83-1.16) H 10/09/17 06:40 Physical Exam - Physical Exam General Appearance: WD/WN, alert, no apparent distress Respiratory: lungs clear, normal breath sounds Abdomen: normal bowel sounds, non-tender, soft Extremities: No swelling, No Scooby's sign Neuro/Psych: cognition abnormalities, other (HE IS ORIENTED TO PLACE, YEAR, MONTH. NOT CURRENT EVENTS. NO CHANGE IN UPPER OR LOWER EXTREMITY MOTOR EXAM FROM PREVIOUS EXAMS.) ICD10 Worksheet Patient Problems: Problems Problem Status Onset CVA (cerebral vascular accident) Acute Decubitus ulcer of left hip Acute ICH (intracerebral hemorrhage) Acute
[2017-10-09] MEDS ORDERED: WARFARIN SODIUM 3 MG TAB PO ONE (16:00)
[2017-10-09] MEDS: QUEtiapine FUMARATE 25 MG TAB PO SCH (20:30)
[2017-10-09] MEDS: GABAPENTIN 300 MG CAP PO SCH (20:30)
[2017-10-09] MEDS: BACLOFEN 10 MG TAB PO SCH (20:30)
[2017-10-09] MEDS: TAMSULOSIN HCL 0.4 MG CAP PO SCH (20:30)
[2017-10-10] MEDS: LISINOPRIL 20 MG TAB PO SCH (08:50)
[2017-10-10] MEDS: QUEtiapine FUMARATE 25 MG TAB PO SCH ×2 (08:51→20:40)
[2017-10-10 09:44] LABS: INR 2.24 (0.83-1.16); PROTIME(PATIENT) 24.8 SEC (12.0-15.0)
--- NOTE | 2017-10-10 10:02 | SOAPPROG ---
SOAP Progress Note Assessment/Plan: 62-year-old male with a history of a prior right CVA with left hemiparesis on chronic anticoagulation now status post likely traumatic brain injury after being found down at the site of his wheelchair after a fall, with right frontal and left frontal intraparenchymal hemorrhages. Today's update: Some ongoing urinary frequency, UA was negative. He has not been acutely ill, low index of suspicion at this point for prostatitis. He is still complaining of some mild "disorientation" described as a bit lightheaded. Obtaining orthostatics and decreasing the nighttime dose of baclofen to 20 mg ( which is still a high dose). He is on Gabapentin at night which can also predispose to delirium, so will start with decreasing baclofen as tolerated and then consider decreasing the gabapentin. 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 * Continue with physical, occupational speech therapy for impairments in cognition and communication. * Minimize delirium inducing medications * Monitor for neurologic changes with low threshold to reimage Urinary frequency: Negative UA, not acutely ill. Dr. Bonner concerned about prostatitis, but will obtain CBC. Given his subtle symptoms, low clinical concern for prostatitis. He uses a condom catheter at night which would put him at an elevated risk of UTI. * Monitor closely * CBC Left hemiparesis secondary to old right CVA. Again goal should be returning patient back to his previous baseline. He will require assistance on discharge , consistent with his baseline. Stroke prophylaxis-INR 10/10 was 2.24, stable. * Continue daily Coumadin which will be adjusted per pharmacy. Appreciate assistance. Anxiety: Seroquel started over past weekend, currently at 12.5 mg po BID. Monitor Neuropathic pain * continue Neurontin 300 at bedtime, consider decreasing dose however because it could contribute to his cognitive changes. Hypertension : Primary * lisinopril 20 q.day. * Monitor Spasticity * Decreased baclofen to 20 mg po qhs * If higher dose needed, would add additional doses rather than increasing nighttime dose. Bladder program: Due to his request to be taken to the bathroom to urinate several times per hour, will obtain urine for UA to rule out UTI. Case management-case management is in process of contacting brother regarding legal issues of POA. She is also looking into various discharge disposition is including long-term care facility options. AYLA 10/2510/03/17 14:34 10/10/17 09:49 Subjective: Chief complaint: Confusion and urinary frequency No acute events overnight. Patient endorses good sleep but feels that he is somewhat disoriented today. When asked further what he meant he said that he felt a little bit lightheaded, sometimes a little confused. Patient denies any new symptoms. Denies any new fevers, chills, night sweats, no new shortness of breath or chest pain, no new numbness, tingling, or weakness. He continues to have some urinary frequency, urinalysis from 2 days ago was normal. He denies any other new symptoms. Denies any hallucinations or poor sleep. Objective: Vital Signs Temp Pulse Resp BP Pulse Ox 36.6 C 84 16 124/72 H 95 10/10/17 08:00 10/10/17 08:00 10/10/17 08:00 10/10/17 08:50 10/10/17 08:00 Laboratory Results 10/08/17 06:30 10/08/17 06:30 10/09/17 10/10/17 10/11/17 05:59 05:59 05:59 Intake Total 1100 950 120 Output Total 825 675 Balance 275 275 120 PT 24.8 SEC (12.0-15.0) H 10/10/17 08:00 INR 2.24 (0.83-1.16) H 10/10/17 08:00 Physical Exam - Physical Exam General Appearance: WD/WN, alert, no apparent distress EENT: No scleral icterus (R), No scleral icterus (L) Respiratory: No respiratory distress, No accessory muscle use Cardiac/Chest: normal peripheral pulses, regular rate, rhythm, No edema Skin: normal color, warm/dry, No cyanosis, No diaphoresis Extremities: No pedal edema, No swelling Neuro/Psych: alert, normal mood/affect, No oriented x 3 (Oriented to self) ICD10 Worksheet Patient Problems: Problems Problem Status Onset CVA (cerebral vascular accident) Acute Decubitus ulcer of left hip Acute ICH (intracerebral hemorrhage) Acute
[2017-10-10] MEDS ORDERED: WARFARIN SODIUM 3 MG TAB PO ONE (16:00)
[2017-10-10] MEDS: BACLOFEN 10 MG TAB PO SCH (20:40)
[2017-10-10] MEDS: TAMSULOSIN HCL 0.4 MG CAP PO SCH (20:41)
[2017-10-10] MEDS: GABAPENTIN 300 MG CAP PO SCH (20:41)
[2017-10-11 08:12] LABS: PLATELET COUNT 331 10^3/uL (150-400)
[2017-10-11] MEDS: QUEtiapine FUMARATE 25 MG TAB PO SCH (08:25)
[2017-10-11] MEDS: LISINOPRIL 20 MG TAB PO SCH (08:25)
[2017-10-11 08:26] LABS: INR 2.35 (0.83-1.16); PROTIME(PATIENT) 25.7 SEC (12.0-15.0)
--- NOTE | 2017-10-11 09:06 | SOAPPROG ---
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 * Functional independence measure 44 on 10/04/2017, improved to 66 on 10/11/2017. He is modified independence for transfers 7:00 a.m. To 7:00 p.m.. He has ambulated 60 ft with standby assist using a quad cane. He requires contact guard for ambulation outdoors. He requires contact guard to minimal assistance for stairs. For dressing and other ADLs he requires standby assist and cues. He is slow to adjust to a new routine. Continue w PT and OT. Cognitive impairment. Passed the OLOG x1 so not get emerged from post traumatic amnesia. Noted to be perseverative, confused and distractible. * Continue GOPHERMAN. Urinary frequency: Negative UA, insignificant postvoid residual, not acutely ill. Dr. Bonner concerned about prostatitis, but with normal CBC and no other signs of symptoms of infection, low clinical concern for prostatitis. * Discontinue condom catheter at night and initiate bedside commode for easier transfers, starting 10/11/2017. * Query whether subjective urinary frequency is more symptom of perseveration and memory loss. Left hemiparesis secondary to old right CVA. Again goal should be returning patient back to his previous baseline. He will require assistance on discharge , consistent with his baseline. Stroke prophylaxis. * Continue daily Coumadin which will be adjusted per pharmacy. Appreciate assistance. Anxiety: Seroquel started over past weekend, currently at 12.5 mg po BID. Change to PRN today 10/11/2017. Monitor. Consider initiating SSRI. Tolerated fluoxetine on previous rehab stay in 2016. Neuropathic pain? * He denies current symptoms. Will discontinue gabapentin and observe for recurrence. Hypertension : Primary * lisinopril 20 q.day. * Monitor Spasticity * Decreased baclofen to 20 mg po qhs * If higher dose needed, would add additional doses rather than increasing nighttime dose. Attended staffing, 15 min. Discussed with case management, dietitian, nursing, PT, OT, GOPHERMAN. Planning discharge to assisted living facility. A room is available now. Tentative discharge date of 10/25/2017 set, or sooner should he achieve sufficient functional independence. 10/11/17 13:09 Subjective: No complaints this morning. Nursing notes improved attention and memory. He reports continued urinary frequency during the day but he is not up at night. Objective: Vital Signs Temp Pulse Resp BP Pulse Ox 37.0 C 95 18 101/59 L 97 10/11/17 08:00 10/11/17 08:00 10/11/17 08:00 10/11/17 08:25 10/11/17 08:00 Laboratory Results 10/11/17 07:30 10/08/17 06:30 10/10/17 10/11/17 10/12/17 05:59 05:59 05:59 Intake Total 950 340 Output Total 675 650 Balance 275 -310 PT 25.7 SEC (12.0-15.0) H 10/11/17 07:30 INR 2.35 (0.83-1.16) H 10/11/17 07:30 - Time Spent With Patient Time Spent With Patient: Greater than 35 min floor time today, including more than 50% of time in coordination of care during staffing meeting, and counseling patient. Physical Exam - Physical Exam General Appearance: WD/WN, alert, no apparent distress Respiratory: normal breath sounds, No crackles, No rhonchi, No wheezing Cardiac/Chest: regular rate, rhythm, No edema Skin: normal color, warm/dry Neuro/Psych: alert, normal mood/affect, motor weakness (Left hemiparesis) ICD10 Worksheet Patient Problems: Problems Problem Status Onset CVA (cerebral vascular accident) Acute Decubitus ulcer of left hip Acute ICH (intracerebral hemorrhage) Acute
[2017-10-11] MEDS ORDERED: QUEtiapine FUMARATE 25 MG TAB PO PRN (11:29)
[2017-10-11] MEDS: WARFARIN SODIUM 3 MG TAB PO SCH (16:24)
[2017-10-11] MEDS: BACLOFEN 10 MG TAB PO SCH (20:35)
[2017-10-11] MEDS: TAMSULOSIN HCL 0.4 MG CAP PO SCH (20:35)
[2017-10-12] MEDS: LISINOPRIL 20 MG TAB PO SCH (07:56)
--- NOTE | 2017-10-12 08:50 | SOAPPROG ---
[facility] Progress Note Assessment/Plan: 62-year-old male with a history of a prior right CVA with left hemiparesis on chronic anticoagulation now status post likely traumatic brain injury after being found down at the site of his wheelchair after a fall on 09/25/2017, with right frontal and left frontal intraparenchymal hemorrhages. Today's update: Patient is doing well from a therapy standpoint by his report. Denies any pain related to decrease in gabapentin dose. Denies that spasticity is interfering with his function in any way and is not painful. He notes that his sleep has not been particularly good as an inpatient but does sleep well at home. No change in his sleep with decrease in baclofen or cessation of gabapentin. Interested in trying melatonin. Okay with decreasing baclofen further. INR for today is pending. Total of 25 min was spent on the floor in the care of the patient, the majority of which was spent counseling and coordination of care regarding strategies for improving sleep and managing spasticity. 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 * Functional independence measure 44 on 10/04/2017, improved to 66 on 10/11/2017. He is modified independence for transfers 7:00 a.m. To 7:00 p.m.. He has ambulated 60 ft with standby assist using a quad cane. He requires contact guard for ambulation outdoors. He requires contact guard to minimal assistance for stairs. For dressing and other ADLs he requires standby assist and cues. He is slow to adjust to a new routine. Continue w PT and OT. Cognitive impairment. Passed the OLOG x1 so not get emerged from post traumatic amnesia, though complicated by his baseline. Noted to be perseverative, confused and distractible. * Continue SHAREPOINT ADMIN. Urinary frequency: Negative UA, insignificant postvoid residual, not acutely ill. Dr. Bonner concerned about prostatitis, but with normal CBC and no other signs of symptoms of infection, low clinical concern for prostatitis. * Discontinue condom catheter at night and initiate bedside commode for easier transfers, starting 10/11/2017. * Query whether subjective urinary frequency is more symptom of perseveration and memory loss. Left hemiparesis secondary to old right CVA. Again goal should be returning patient back to his previous baseline. He will require assistance on discharge , consistent with his baseline. Stroke prophylaxis. * Continue daily Coumadin which will be adjusted per pharmacy. Appreciate assistance. Anxiety: Seroquel started over past weekend, currently at 12.5 mg po BID. Change to PRN today 10/11/2017. Monitor. Consider initiating SSRI. Tolerated fluoxetine on previous rehab stay in 2016. Neuropathic pain? * He denies current symptoms. Will discontinue gabapentin and observe for recurrence. Hypertension : Primary * lisinopril 20 q.day. * Monitor Spasticity : Significant but not clearly functionally impairing, not painful * Further decrease baclofen to 10 mg p.o. At bedtime * If higher dose needed, would add additional doses rather than increasing nighttime dose. Reported insomnia * Melatonin p.o. At bedtime Planning discharge to assisted living facility. A room is available now. Tentative discharge date of 10/25/2017 set, or sooner should he achieve sufficient functional independence or accepted to facility. 10/03/17 14:34 10/10/17 09:49 10/12/17 08:46 Subjective: Chief complaint spasticity No acute events overnight. Patient denies any new shortness of breath or chest pain, no new numbness, tingling, or weakness. Patient endorses ongoing spasticity that is not painful or functionally limiting. Discussion with occupational therapy also indicated that is not functionally limiting. Unclear with the pain in of physical therapy is at this point. Patient denies any pain and notes that he did not notice any changes with the absence of gabapentin overnight. He feels that he is still not sleeping particularly well but noticed no difference. He still feels a bit confused today. He is okay with trying melatonin at night, decreasing baclofen, continuing to monitor. Objective: Vital Signs Temp Pulse Resp BP Pulse Ox 36.9 C 85 18 110/74 97 10/12/17 06:45 10/12/17 06:45 10/12/17 06:45 10/12/17 07:56 10/12/17 06:45 Laboratory Results 10/11/17 07:30 10/08/17 06:30 10/11/17 10/12/17 10/13/17 05:59 05:59 05:59 Intake Total 340 2500 Output Total 650 1825 30 Balance -310 675 -30 PT 25.7 SEC (12.0-15.0) H 10/11/17 07:30 INR 2.35 (0.83-1.16) H 10/11/17 07:30 Physical Exam - Physical Exam General Appearance: WD/WN, alert, no apparent distress EENT: No scleral icterus (R), No scleral icterus (L) Respiratory: No respiratory distress, No accessory muscle use Cardiac/Chest: normal peripheral pulses, regular rate, rhythm, No edema Skin: normal color, warm/dry, No cyanosis, No diaphoresis Extremities: No pedal edema, No swelling Neuro/Psych: alert, normal mood/affect, motor weakness (Left hemiparesis), other (He had 2-3 on the modified Kaden scale on the left upper limb with some sustained clonus with rapid finger extension. Does not bother the patient , not painful) ICD10 Worksheet Patient Problems: Problems Problem Status Onset CVA (cerebral vascular accident) Acute Decubitus ulcer of left hip Acute ICH (intracerebral hemorrhage) Acute
[2017-10-12] MEDS: WARFARIN SODIUM 3 MG TAB PO SCH (15:01)
[2017-10-12] MEDS: MELATONIN 3 MG TAB PO SCH (20:24)
[2017-10-12] MEDS: TAMSULOSIN HCL 0.4 MG CAP PO SCH (20:24)
[2017-10-12] MEDS: BACLOFEN 10 MG TAB PO SCH (20:24)
[2017-10-13 08:17] LABS: INR 2.41 (0.83-1.16); PROTIME(PATIENT) 26.2 SEC (12.0-15.0)
[2017-10-13] MEDS: LISINOPRIL 20 MG TAB PO SCH (08:19)
--- NOTE | 2017-10-13 11:46 | SOAPPROG ---
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 * Functional independence measure 44 on 10/04/2017, improved to 66 on 10/11/2017. He is modified independence for transfers 7:00 a.m. To 7:00 p.m., advancing to independent 24 hr a day on 10/13/2017. He has ambulated 60 ft with standby assist using a quad cane. He requires contact guard for ambulation outdoors. He requires contact guard to minimal assistance for stairs. For dressing and other ADLs he requires standby assist and cues. He is slow to adjust to a new routine. Continue PT and OT. Cognitive impairment. Passed the OLOG x2; emerged from post traumatic amnesia. Noted to be perseverative, confused and distractible. 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 Urinary frequency: Negative UA, insignificant postvoid residual, not acutely ill. Dr. Bonner concerned about prostatitis, but with normal CBC and no other signs of symptoms of infection, low clinical concern for prostatitis. * Discontinue condom catheter at night and initiate bedside commode for easier transfers, starting 10/11/2017. * Query whether subjective urinary frequency is more symptom of perseveration and memory loss. * Trial of low-dose oxybutynin at HS today 10/13/2017. Left hemiparesis secondary to old right CVA. Again goal should be returning patient back to his previous baseline. He will require assistance on discharge , consistent with his baseline. Stroke prophylaxis. * Continue daily Coumadin which will be adjusted per pharmacy. Appreciate assistance. Anxiety: Seroquel started over past weekend, currently at 12.5 mg po BID. Change to PRN today 10/11/2017. Monitor. Consider initiating SSRI. Tolerated fluoxetine on previous rehab stay in 2016. Neuropathic pain? * He denies current symptoms. Will discontinue gabapentin and observe for recurrence. Hypertension : Primary * lisinopril 20 q.day. * Monitor Spasticity * Decreased baclofen to 20 mg po qhs * If higher dose needed, would add additional doses rather than increasing nighttime dose. Planning discharge to assisted living facility. A room is available now. Tentative discharge date of 10/25/2017 set, or sooner should he achieve sufficient functional independence. He desires to follow-up with Dr. Sky Rivas, who he describes as a friend as well as his PCP in the past. 10/13/17 11:41 Subjective: Would like to be able to transport himself to the bathroom at night. Has not had worsening of pain with decrease of gabapentin. Still has urinary frequency overnight. Objective: Vital Signs Temp Pulse Resp BP Pulse Ox 37.0 C 97 18 126/72 H 93 10/13/17 06:24 10/13/17 06:24 10/13/17 06:24 10/13/17 08:19 10/13/17 06:24 Laboratory Results 10/11/17 07:30 10/08/17 06:30 10/12/17 10/13/17 10/14/17 05:59 05:59 05:59 Intake Total 2500 740 476 Output Total 1825 580 Balance 675 160 476 PT 26.2 SEC (12.0-15.0) H 10/13/17 06:40 INR 2.41 (0.83-1.16) H 10/13/17 06:40 Physical Exam - Physical Exam General Appearance: WD/WN, alert, no apparent distress Respiratory: normal breath sounds, No crackles, No rhonchi, No wheezing Cardiac/Chest: regular rate, rhythm, No edema Skin: normal color, warm/dry Neuro/Psych: alert, normal mood/affect, oriented x 3, motor weakness ICD10 Worksheet Patient Problems: Problems Problem Status Onset CVA (cerebral vascular accident) Acute Decubitus ulcer of left hip Acute ICH (intracerebral hemorrhage) Acute
[2017-10-13] MEDS: WARFARIN SODIUM 3 MG TAB PO SCH (16:09)
[2017-10-13] MEDS: MELATONIN 3 MG TAB PO SCH (21:02)
[2017-10-13] MEDS: OXYBUTYNIN CHLORIDE 5 MG TAB PO SCH (21:02)
[2017-10-13] MEDS: TAMSULOSIN HCL 0.4 MG CAP PO SCH (21:02)
[2017-10-13] MEDS: BACLOFEN 10 MG TAB PO SCH (21:02)
[2017-10-14] MEDS: LISINOPRIL 20 MG TAB PO SCH (09:01)
--- NOTE | 2017-10-14 14:46 | SOAPPROG ---
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 * Functional independence measure 44 on 10/04/2017, improved to 66 on 10/11/2017. He is modified independence for transfers 7:00 a.m. To 7:00 p.m., advancing to independent 24 hr a day on 10/13/2017. He has ambulated 60 ft with standby assist using a quad cane. He requires contact guard for ambulation outdoors. He requires contact guard to minimal assistance for stairs. For dressing and other ADLs he requires standby assist and cues. He is slow to adjust to a new routine. Continue PT and OT. Cognitive impairment. Passed the OLOG x2; emerged from post traumatic amnesia. Noted to be perseverative, confused and distractible. 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 Urinary frequency: Negative UA, insignificant postvoid residual, not acutely ill. Dr. Bonner concerned about prostatitis, but with normal CBC and no other signs of symptoms of infection, low clinical concern for prostatitis. * Discontinue condom catheter at night and initiate bedside commode for easier transfers, starting 10/11/2017. * Query whether subjective urinary frequency is more symptom of perseveration and memory loss. * Trial of low-dose oxybutynin at HS today 10/13/2017. Left hemiparesis secondary to old right CVA. Again goal should be returning patient back to his previous baseline. He will require assistance on discharge , consistent with his baseline. Stroke prophylaxis. * Continue daily Coumadin which will be adjusted per pharmacy. Appreciate assistance. Anxiety: Seroquel started over past weekend, currently at 12.5 mg po BID. Change to PRN today 10/11/2017. Monitor. Consider initiating SSRI. Tolerated fluoxetine on previous rehab stay in 2016. Neuropathic pain? * He denies current symptoms. Will discontinue gabapentin and observe for recurrence. Hypertension : Primary * lisinopril 20 q.day. * Monitor Spasticity * Decreased baclofen to 20 mg po qhs * If higher dose needed, would add additional doses rather than increasing nighttime dose. Planning discharge to assisted living facility. A room is available now. Tentative discharge date of 10/25/2017 set, or sooner should he achieve sufficient functional independence. He desires to follow-up with Dr. Sky Rivas, who he describes as a friend as well as his PCP in the past. 10/13/17 11:41 Plan: Cont Dr Downs Rehab treatment plan 10/14/17 14:43 Subjective: No new problems or C/O's No F/C/CP/SOB/N/V/D/C Objective: Vital Signs Temp Pulse Resp BP Pulse Ox 36.8 C 81 16 111/73 95 10/14/17 07:07 10/14/17 07:07 10/14/17 07:07 10/14/17 09:01 10/14/17 07:07 Laboratory Results 10/11/17 07:30 10/08/17 06:30 10/13/17 10/14/17 10/15/17 05:59 05:59 05:59 Intake Total 740 1306 918 Output Total 580 300 Balance 160 1006 918 PT 26.2 SEC (12.0-15.0) H 10/13/17 06:40 INR 2.41 (0.83-1.16) H 10/13/17 06:40 Physical Exam - Physical Exam General Appearance: alert Respiratory: lungs clear Cardiac/Chest: regular rate, rhythm Skin: normal color, warm/dry Neuro/Psych: alert, oriented x 3, motor weakness, sensory deficit, cognition abnormalities, other (No acute changes) ICD10 Worksheet Patient Problems: Problems Problem Status Onset CVA (cerebral vascular accident) Acute Decubitus ulcer of left hip Acute ICH (intracerebral hemorrhage) Acute
[2017-10-14] MEDS: WARFARIN SODIUM 3 MG TAB PO SCH (16:01)
[2017-10-14] MEDS: MELATONIN 3 MG TAB PO SCH (20:02)
[2017-10-14] MEDS: OXYBUTYNIN CHLORIDE 5 MG TAB PO SCH (20:02)
[2017-10-14] MEDS: BACLOFEN 10 MG TAB PO SCH (20:02)
[2017-10-14] MEDS: TAMSULOSIN HCL 0.4 MG CAP PO SCH (20:02)
[2017-10-15 07:46] LABS: INR 2.66 (0.83-1.16); PROTIME(PATIENT) 28.3 SEC (12.0-15.0)
[2017-10-15] MEDS: LISINOPRIL 20 MG TAB PO SCH (09:32)
--- NOTE | 2017-10-15 12:40 | SOAPPROG ---
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 * Functional independence measure 66 on 10/11/2017. Confusion impacting success with modified independence for transfers 7:00 a.m. To 7:00 p.m. To be reviewed by primary team. He has ambulated 60 ft with standby assist using a quad cane. He requires contact guard for ambulation outdoors. He requires contact guard to minimal assistance for stairs. For dressing and other ADLs he requires standby assist and cues. He is slow to adjust to a new routine. Continue PT and OT. Cognitive impairment. Passed the OLOG x2; emerged from post traumatic amnesia. Noted to be perseverative, confused and distractible, impacting safety with I mobility. 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 Urinary frequency: Negative UA, insignificant postvoid residual, not acutely ill. Dr. Bonner concerned about prostatitis, but with normal CBC and no other signs of symptoms of infection, low clinical concern for prostatitis. * Discontinue condom catheter at night and initiate bedside commode for easier transfers, starting 10/11/2017. * Query whether subjective urinary frequency is more symptom of perseveration and memory loss. * Trial of low-dose oxybutynin at HS today 10/13/2017. Left hemiparesis secondary to old right CVA. Again goal should be returning patient back to his previous baseline. He will require assistance on discharge , consistent with his baseline. Stroke prophylaxis. * Continue daily Coumadin which will be adjusted per pharmacy. INR 2.66 this date. Anxiety: Seroquel started over past weekend, currently at 12.5 mg po BID. Change to PRN today 10/11/2017. Monitor. Consider initiating SSRI. Tolerated fluoxetine on previous rehab stay in 2016. Neuropathic pain? * He denies current symptoms. Will discontinue gabapentin and observe for recurrence. Hypertension : Primary * lisinopril 20 q.day. * Monitor Spasticity * Decreased baclofen to 20 mg po qhs * If higher dose needed, would add additional doses rather than increasing nighttime dose. Planning discharge to assisted living facility. A room is available now. Tentative discharge date of 10/25/2017 set, or sooner should he achieve sufficient functional independence. He desires to follow-up with Dr. Sky Rivas, who he describes as a friend as well as his PCP in the past. Plan: Cont Dr Downs Rehab treatment plan 10/15/17 12:37 Subjective: Pleasantly confused, easily redirected. Good insight regarding his confusion Denies F/C/CP/SOB/N/V/D/C No significant behavioral/neuro changes reported by staff Objective: Vital Signs Temp Pulse Resp BP Pulse Ox 36.4 C 79 16 104/70 96 10/15/17 07:52 10/15/17 07:52 10/15/17 07:52 10/15/17 07:52 10/15/17 07:52 Laboratory Results 10/11/17 07:30 10/08/17 06:30 10/14/17 10/15/17 10/16/17 05:59 05:59 05:59 Intake Total 1306 1398 500 Output Total 300 400 Balance 1006 998 500 PT 28.3 SEC (12.0-15.0) H 10/15/17 06:15 INR 2.66 (0.83-1.16) H 10/15/17 06:15 Physical Exam - Physical Exam General Appearance: alert, no apparent distress Neck: supple Respiratory: lungs clear Cardiac/Chest: regular rate, rhythm Skin: normal color, warm/dry Extremities: No pedal edema, No calf tenderness Neuro/Psych: alert, abnormal gait, motor weakness (Spastic hemiparesis), sensory deficit, cognition abnormalities, other (No acute changes) ICD10 Worksheet Patient Problems: Problems Problem Status Onset CVA (cerebral vascular accident) Acute Decubitus ulcer of left hip Acute ICH (intracerebral hemorrhage) Acute
[2017-10-15] MEDS: WARFARIN SODIUM 3 MG TAB PO SCH (16:22)
[2017-10-15] MEDS: OXYBUTYNIN CHLORIDE 5 MG TAB PO SCH (20:26)
[2017-10-15] MEDS: TAMSULOSIN HCL 0.4 MG CAP PO SCH (20:26)
[2017-10-15] MEDS: MELATONIN 3 MG TAB PO SCH (20:26)
[2017-10-15] MEDS: BACLOFEN 10 MG TAB PO SCH (20:26)
[2017-10-16] MEDS: LISINOPRIL 20 MG TAB PO SCH (07:49)
--- NOTE | 2017-10-16 15:57 | SOAPPROG ---
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 * Functional independence measure 44 on 10/04/2017, improved to 66 on 10/11/2017. He is modified independence for transfers 7:00 a.m. To 7:00 p.m., advancing to independent 24 hr a day at the wheelchair level on 10/13/2017. He has ambulated 60 ft with standby assist using a quad cane. He requires contact guard for ambulation outdoors. He requires contact guard to minimal assistance for stairs. For dressing and other ADLs he requires standby assist and cues. He is slow to adjust to a new routine. Continue PT and OT. Cognitive impairment. Passed the OLOG x2; emerged from post traumatic amnesia. Noted to be perseverative, confused and distractible. 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 Urinary frequency: Negative UA, insignificant postvoid residual, not acutely ill. Dr. Bonner concerned about prostatitis, but with normal CBC and no other signs of symptoms of infection, low clinical concern for prostatitis. * Discontinue condom catheter at night and initiate bedside commode for easier transfers, starting 10/11/2017. * Query whether subjective urinary frequency is more symptom of perseveration and memory loss. * Trial of low-dose oxybutynin at started 10/13/2017. Urinary frequency has improved. Left hemiparesis secondary to old right CVA. Again goal should be returning patient back to his previous baseline. He will require assistance on discharge , consistent with his baseline. Stroke prophylaxis. * Continue daily Coumadin which will be adjusted per pharmacy. Appreciate assistance. Anxiety: Seroquel started over weekend 10/07-10/08/2017, currently at 12.5 mg po BID. Changed to PRN 10/11/2017. Monitor. Consider initiating SSRI. Tolerated fluoxetine on previous rehab stay in 2016. Neuropathic pain? * He denies current symptoms. Will discontinue gabapentin and observe for recurrence. Hypertension : Primary * lisinopril 20 q.day. * Monitor Spasticity * Decreased baclofen to 20 mg po qhs * If higher dose needed, would add additional doses rather than increasing nighttime dose. Planning discharge to assisted living facility. A room is available now. Tentative discharge date of 10/19/2017. He desires to follow-up with Dr. Sky Rivas, who he describes as a friend as well as his PCP in the past. 10/16/17 15:48 Subjective: No complaints. Aware of plan to discharge to assisted living facility. Continues to ask about his prior primary care provider Dr. Rivas. Objective: Vital Signs Temp Pulse Resp BP Pulse Ox 36.6 C 90 16 111/69 94 10/16/17 06:35 10/16/17 06:35 10/16/17 06:35 10/16/17 06:35 10/16/17 06:35 Laboratory Results 10/11/17 07:30 10/08/17 06:30 10/15/17 10/16/17 10/17/17 05:59 05:59 05:59 Intake Total 1398 1040 450 Output Total 400 Balance 998 1040 450 PT 28.3 SEC (12.0-15.0) H 10/15/17 06:15 INR 2.66 (0.83-1.16) H 10/15/17 06:15 Physical Exam - Physical Exam General Appearance: WD/WN, alert, no apparent distress Respiratory: No respiratory distress, No accessory muscle use Skin: normal color, warm/dry Neuro/Psych: alert, normal mood/affect, oriented x 3, motor weakness (Left upper and lower extremities) ICD10 Worksheet Patient Problems: Problems Problem Status Onset CVA (cerebral vascular accident) Acute Decubitus ulcer of left hip Acute ICH (intracerebral hemorrhage) Acute
[2017-10-16] MEDS ORDERED: WARFARIN SODIUM 5 MG TAB PO ONE (16:00)
[2017-10-16] MEDS: TAMSULOSIN HCL 0.4 MG CAP PO SCH (20:09)
[2017-10-16] MEDS: OXYBUTYNIN CHLORIDE 5 MG TAB PO SCH (20:09)
[2017-10-16] MEDS: BACLOFEN 10 MG TAB PO SCH (20:09)
[2017-10-16] MEDS: MELATONIN 3 MG TAB PO SCH (20:09)
[2017-10-17 08:16] LABS: INR 2.5 (0.83-1.16)
[2017-10-17] MEDS: LISINOPRIL 20 MG TAB PO SCH (08:34)
--- NOTE | 2017-10-17 10:39 | SOAPPROG ---
SOAP Progress Note Assessment/Plan: 62-year-old male with a history of a prior right CVA with left hemiparesis on chronic anticoagulation now status post likely traumatic brain injury after being found down at the site of his wheelchair after a fall on 09/25/2017, with right frontal and left frontal intraparenchymal hemorrhages. Today's update: Patient desires a bit more assistance in sleeping at night, open to trazodone which is added to his medication list that 50 mg p.o. At bedtime. He is already on melatonin and feels that that has been helpful. INR is stable at 0.5, he feels his spasticity is currently managed sufficiently. He does not desire Botox injections in the future, would consider a duration of baclofen during the day if necessary. Continuing the baclofen at 10 mg p.o. At bedtime. A total of 25 min was spent on the floor in the care of the patient, the majority of which was spent counseling coordination of care regarding functional mobility, work with staff, and treatment options for spasticity. 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 * Functional independence measure 44 on 10/04/2017, improved to 66 on 10/11/2017. He is modified independence for transfers 7:00 a.m. To 7:00 p.m., advancing to independent 24 hr a day at the wheelchair level on 10/13/2017. He has ambulated 60 ft with standby assist using a quad cane. He requires contact guard for ambulation outdoors. He requires contact guard to minimal assistance for stairs. For dressing and other ADLs he requires standby assist and cues. He is slow to adjust to a new routine. Continue PT and OT. Cognitive impairment. Passed the OLOG x2; emerged from post traumatic amnesia. Noted to be perseverative, confused and distractible. 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 Urinary frequency: Negative UA, insignificant postvoid residual, not acutely ill. * Discontinue condom catheter at night and initiate bedside commode for easier transfers, starting 10/11/2017. * Query whether subjective urinary frequency is more symptom of perseveration and memory loss. * Trial of low-dose oxybutynin at started 10/13/2017. Urinary frequency has improved. Left hemiparesis secondary to old right CVA. Again goal should be returning patient back to his previous baseline. He will require assistance on discharge , consistent with his baseline. Stroke prophylaxis. * Continue daily Coumadin which will be adjusted per pharmacy. Appreciate assistance. Anxiety: Seroquel started over weekend 10/07-10/08/2017, currently at 12.5 mg po BID. Changed to PRN 10/11/2017. Monitor. Consider initiating SSRI. Tolerated fluoxetine on previous rehab stay in 2016. Neuropathic pain? * He denies current symptoms. No further gabapentin at this time Hypertension : Primary * lisinopril 20 q.day. * Monitor Spasticity * Baclofen at 10 mg p.o. At bedtime * If higher dose needed, would add additional doses rather than increasing nighttime dose. Planning discharge to assisted living facility. A room is available now. Tentative discharge date of 10/19/2017. He desires to follow-up with Dr. Sky Rivas, who he describes as a friend as well as his PCP in the past. 10/03/17 14:34 10/10/17 09:49 10/12/17 08:46 10/17/17 10:36 Subjective: Chief complaint: Difficulty sleeping, spasticity management strategies No acute events overnight. Patient denies any new shortness of breath or chest pain, no new numbness, tingling, or weakness. Patient source of some difficulty sleeping and he also attributes that to some irritability. He feels he has some conflict with staff and feels that if he was sleeping a bit better that that would be minimized. He feels that his spasticity is adequately managed at baclofen 10 mg p. O. At bedtime, he feels much more alert now as well. INR is 2.5, no bleeding. He endorsed that he is wary of Botox injections and as we discussed these as a potential treatment option for his spasticity in the long run, and he declined interested in that. Objective: Vital Signs Temp Pulse Resp BP Pulse Ox 36.9 C 110 H 20 99/76 L 94 10/17/17 08:05 10/17/17 08:05 10/17/17 08:05 10/17/17 08:05 10/17/17 08:05 Laboratory Results 10/11/17 07:30 10/08/17 06:30 10/16/17 10/17/17 10/18/17 05:59 05:59 05:59 Intake Total 1040 1280 475 Balance 1040 1280 475 PT 27.0 SEC (12.0-15.0) H 10/17/17 06:35 INR 2.50 (0.83-1.16) H 10/17/17 06:35 Physical Exam - Physical Exam General Appearance: WD/WN, alert, no apparent distress EENT: No scleral icterus (R), No scleral icterus (L) Respiratory: No respiratory distress, No accessory muscle use Cardiac/Chest: normal peripheral pulses, regular rate, rhythm, No edema Skin: normal color, warm/dry, No cyanosis, No diaphoresis Extremities: No pedal edema, No swelling Neuro/Psych: alert, normal mood/affect, motor weakness (Left spastic hemiparesis , was able to stretch the handed to extension of the wrist in extension of fingers. Three on the modified Kaden scale) ICD10 Worksheet Patient Problems: Problems Problem Status Onset CVA (cerebral vascular accident) Acute Decubitus ulcer of left hip Acute ICH (intracerebral hemorrhage) Acute
[2017-10-17] MEDS: WARFARIN SODIUM 3 MG TAB PO SCH (15:25)
[2017-10-17] MEDS: TAMSULOSIN HCL 0.4 MG CAP PO SCH (20:15)
[2017-10-17] MEDS: MELATONIN 3 MG TAB PO SCH (20:15)
[2017-10-17] MEDS: OXYBUTYNIN CHLORIDE 5 MG TAB PO SCH (20:15)
[2017-10-17] MEDS: BACLOFEN 10 MG TAB PO SCH (20:15)
[2017-10-17] MEDS ORDERED: traZODone 50 MG TAB PO SCH (21:00)
[2017-10-18] MEDS: LISINOPRIL 20 MG TAB PO SCH (07:30)
[2017-10-18] MEDS ORDERED: traZODone 50 MG TAB PO SCH (09:54)
--- NOTE | 2017-10-18 09:57 | SOAPPROG ---
[facility] Progress Note Assessment/Plan: Assessment: 62-year-old male with a history of a prior right CVA with left hemiparesis on chronic anticoagulation now status post likely traumatic brain injury after being found down at the site of his wheelchair after a fall on 09/25/2017, with right frontal and left frontal intraparenchymal hemorrhages. 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 * Functional independence measure 44 on 10/04/2017, improved to 66 on 10/11/2017 and to 82 as of 10/18/2017. He is modified independence for transfers 24 hr a day at the wheelchair level on 10/13/2017. He has ambulated 150 ft with standby assist using a quad cane. He requires contact guard for ambulation outdoors. He requires contact guard to minimal assistance for stairs. For dressing and other ADLs he is modified independent. Continue PT and OT. Cognitive impairment. Passed the OLOG x2; emerged from post traumatic amnesia. Overall moderate cognitive deficits on CLQT, but severe deficit to executive function. 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 Urinary frequency: Negative UA, insignificant postvoid residual, not acutely ill. Dr. Bonner concerned about prostatitis, but with normal CBC and no other signs of symptoms of infection, low clinical concern for prostatitis. * Discontinue condom catheter at night and initiate bedside commode for easier transfers, starting 10/11/2017. * Query whether subjective urinary frequency is more symptom of perseveration and memory loss. * Trial of low-dose oxybutynin at HS started 10/13/2017. Urinary frequency has improved. Left hemiparesis secondary to old right CVA. Again goal should be returning patient back to his previous baseline. He will require assistance on discharge , consistent with his baseline. Insomnia. Trazodone appears to be effective. Will try lower dose, 25 mg at HS starting 10/18/2017 rather than 50 mg. Discontinue melatonin as it is likely not providing any benefit at this point. Stroke prophylaxis. * Continue daily warfarin which will be adjusted per pharmacy. Appreciate assistance. * Will discharge on 6 mg warfarin QD. Anxiety: Seroquel started over weekend 10/07-10/08/2017, currently at 12.5 mg po BID. Changed to PRN 10/11/2017. Monitor. Consider initiating SSRI. Tolerated fluoxetine on previous rehab stay in 2016. Neuropathic pain? * He denies current symptoms. Will discontinue gabapentin and observe for recurrence. Hypertension : Primary * lisinopril 20 q.day. * Monitor Spasticity * Decreased baclofen to 20 mg po qhs * If higher dose needed, would add additional doses rather than increasing nighttime dose. Attended staffing, 15 min. Discussed with case management, nursing, dietitian, PT, OT, MEDICAL MANAGEMENT TRAINER. Plans to discharge to assisted living tomorrow, 10/19/2017. Will continue home PT, OT and MEDICAL MANAGEMENT TRAINER. Home visit planned today with social work to gather belonging and begin planning for full move to [facility]. He will follow up with new PCP who rounds at the [facility]. 10/18/17 12:03 Subjective: Nurse reports urinary incontinence this morning and wonders if she was over- sedated with trazodone, begun last night for insomnia. He says he slept well but woke up with urinary urgency and was unable to get to the bathroom in time. Otherwise without complaints. No cough or dyspnea, no fevers or chills, no dysuria. Objective: Vital Signs Temp Pulse Resp BP Pulse Ox 36.8 C 88 16 134/84 H 96 10/18/17 06:46 10/18/17 06:46 10/18/17 06:46 10/18/17 06:46 10/18/17 06:46 Laboratory Results 10/11/17 07:30 10/08/17 06:30 10/17/17 10/18/17 10/19/17 05:59 05:59 05:59 Intake Total 1280 1385 Balance 1280 1385 PT 27.0 SEC (12.0-15.0) H 10/17/17 06:35 INR 2.50 (0.83-1.16) H 10/17/17 06:35 - Time Spent With Patient Time Spent With Patient: Greater than 35 min floor time today, including more than 50% of time in coordination of care during staffing meeting, and counseling patient. Physical Exam - Physical Exam General Appearance: WD/WN, alert, no apparent distress Respiratory: No respiratory distress, No accessory muscle use Skin: normal color, warm/dry Neuro/Psych: alert, normal mood/affect, oriented x 3, motor weakness (Left upper extremity hemiparesis) ICD10 Worksheet Patient Problems: Problems Problem Status Onset CVA (cerebral vascular accident) Acute Decubitus ulcer of left hip Acute ICH (intracerebral hemorrhage) Acute
--- NOTE | 2017-10-18 13:23 | PDOREHIP ---
Admission [facility] - Admission - 3 Day Assessment Period Admission Date/Day 1: 09/29/17 Day 2: 09/30/17 Day 3: 10/01/17 Discharge [facility] - Discharge - 3 Day Assessment Period 2 Days Prior to Anticipated Discharge Date: 10/17/17 1 Day Prior to Anticipated Discharge Date: 10/18/17 Anticipated Discharge Date: 10/19/17 - Discharge Skin Conditions Unhealed Pressure Ulcer (1 or more/Stage 1 or >)-Discharge: 0. No
[2017-10-18] MEDS: WARFARIN SODIUM 3 MG TAB PO SCH (15:42)
[2017-10-18] MEDS: BACLOFEN 10 MG TAB PO SCH (21:06)
[2017-10-18] MEDS: TAMSULOSIN HCL 0.4 MG CAP PO SCH (21:06)
[2017-10-18] MEDS: OXYBUTYNIN CHLORIDE 5 MG TAB PO SCH (21:06)
[2017-10-19 06:27] VITALS: PULSE 86; RESP 14; O2SAT 96
[2017-10-19 07:56] VITALS: TEMP 98.4
[2017-10-19] MEDS: LISINOPRIL 20 MG TAB PO SCH (08:07)
[2017-10-19 08:15] LABS: INR 2.95 (0.83-1.16); PROTIME(PATIENT) 30.6 SEC (12.0-15.0)
[2017-10-19 08:23] VITALS: BP 106/69
--- NOTE | 2017-10-19 09:39 | PDDCSUM ---
Discharge Summary Discharge Summary: Name: Kevin Lainez Admission date: 09/29/2017 Discharge date: 10/19/2017 Discharging physician: Jacob Huggins MD, Jon Sue MD Admitting diagnosis: 2.21, traumatic open injury Discharge diagnosis: 2.22, traumatic closed injury Comorbid diagnoses: Hemiplegia, cognitive impairment, urinary frequency, insomnia, anticoagulation, anxiety, neuropathic pain, hypertension, spasticity Consultations: physical therapy, occupational therapy, speech language pathology , social work, dietary Procedures: None Reason for admission: Please see the history and physical done by Dr. Sue on 09/29/2017 for full details. Briefly, this is a 62-year-old male with a previous history of a right stroke with left hemiparesis with chronic anticoagulation who was admitted to [facility] the [facility] on 09/25/2017 after being found down by his wheelchair after a fall. Head CT was positive for acute small right frontal and left frontal intraparenchymal hemorrhages. He was stabilized and transferred inpatient rehabilitation with deficits in self-care, mobility, and cognition. Rehabilitation course: He made steady functional gains during rehabilitation, initial functional independence measure was 44, last was 83 on discharge. He was essentially requiring intermittent supervision for hygiene at the wheelchair level, setup for dressing in the seated position, independent for bed mobility and transfers to the toilet from wheelchair 24 hr a day, walking with a 4 point cane with standby assistance, and using a wheelchair and 4 point cane for equipment. Throughout his rehabilitation course he endorsed some mild confusion and repeated workups were negative. Urinary frequency was improved with discontinuation of the condom catheter at night and started on low-dose oxybutynin. Insomnia was treated with trazodone. Warfarin was continued and adjusted by pharmacy, discharge meds listed below for anxiety, he was briefly treated with Seroquel which was eventually discontinued. Future treatment could include an SSRI. Regarding neuropathic pain, as gabapentin was discontinued and he did not have any new symptoms. For spasticity, his baclofen was decreased to 10 mg nightly and if additional treatment of spasticity was needed would recommend adding daytime doses rather than altering the nighttime dose. Discharge plan: Patient will be discharging to [facility], an assisted living facility. There will be a primary care physician there to round the the patient and manage anticoagulation. He will continue to get therapies at the assisted living facility. Medications at discharge: Oxybutynin 5 mg orally at bedtime Tamsulosin 0.4 mg orally daily at 2100 Trazodone 25 mg orally at bedtime Warfarin 6 mg orally every Monday, Monday, Monday, Monday, Monday and 5 mg every Monday and -next warfarin monitoring on Monday, INR on day of discharge was 2.95, and total dose was decreased from 6 mg daily Baclofen 10 mg at bedtime Lisinopril 20 mg orally daily Pending studies: none Issues to be addressed at follow-up: Continue therapies, warfarin monitoring Follow up: Will follow up with PCP at facility A total of 45 minutes was spent on the floor in the care of the patient, the majority was spent in the counseling and coordination of care for discharge planning
== END 2017-10-19 10:04 | DRG 945 ==
LOC: BREH 12:58
PROVIDERS: ADMIT Physical Medicine & Rehabilitation; ATTEND Internal Medicine
PROC: F08Z7ZZ Vocational Activities and Functional Community or Work Reintegration Skills Treatment (ICD-10-PCS; principal; 2017-09-29)
PROC: F07M3ZZ Motor Function Treatment of Musculoskeletal System - Whole Body (ICD-10-PCS; principal; 2017-09-29)
PROC: F0636ZZ Communicative/Cognitive Integration Skills Treatment of Neurological System - Whole Body (ICD-10-PCS; principal; 2017-09-29)
DX: S06.360D Traumatic hemorrhage of cerebrum, unspecified, without loss of consciousness, subsequent encounter (principal); I69.354 Hemiplegia and hemiparesis following cerebral infarction affecting left non-dominant side; I10 Essential (primary) hypertension; W19.XXXA Unspecified fall, initial encounter; I69.318 Other symptoms and signs involving cognitive functions following cerebral infarction; Z79.01 Long term (current) use of anticoagulants; R35.0 Frequency of micturition; G47.00 Insomnia, unspecified; F41.9 Anxiety disorder, unspecified; R25.2 Cramp and spasm
CPT/HCPCS: 92507-GN; 92522-GN; 92610-GN; 97110-GP; 97112-GO; 97112-GP; 97116-GP; 97162-GP; 97166-GO; 97530-GO; 97530-GP; 97535-GO; 97542-GP; G0008; G0515-GO